=== PATIENT | male | born 1940 | race Caucasian/White ===

== ENCOUNTER 2017-12-06 08:39 | Emergency (ER) | payer MEDICARE, BC ==
[2017-12-06 08:54] VITALS: RESP 18
[2017-12-06] MEDS ORDERED: ACETAMINOPHEN TAB 325 MG TAB PO STA (09:19)
--- NOTE | 2017-12-06 09:22 | ED ---
Fever HPI - General Chief Complaint: Fever Stated Complaint: ABd Pain, Sweating Time Seen by Provider: 12/06/17 08:57 Source: patient Mode of arrival: ambulatory Limitations: no limitations - History of Present Illness Initial Comments: 76-year-old male patient presents to the emergency department today reporting night sweats for the last 3-4 days. Patient states that he has woken up drenched in sweat with damp clothing every morning for the last 3-4 days. Patient states that he did have his teeth removed with denture placement in September states that this has decreased his amount of food intake and this has made him weak and tired. Patient denies any sores in his mouth. He denies any cough , congestion, sore throat, abdominal pain, nausea, vomiting, hematuria or dysuria. States that the other day he did have some urinary urgency. Denies any rash. Denies any recent travel or sick contacts. Denies any history of issues with his blood sugar. Patient is up having any chest pain, shortness of breath, or dizziness. - Related Data Previous Rx's Medication Instructions Recorded Levofloxacin [Levaquin] 500 mg PO DAILY #10 tab 12/06/17 Allergies Allergy/AdvReac Type Severity Reaction Status Date / Time No Known Allergies Allergy Verified 12/06/17 08:54 Review of Systems ROS Statement: Those systems with pertinent positive or pertinent negative responses have been documented in the HPI. ROS Other: All systems not noted in ROS Statement are negative. Past Medical History Past Medical History: No Reported History History of Any Multi-Drug Resistant Organisms: None Reported Past Surgical History: Hernia Repair Additional Past Surgical History / Comment(s): finger operation Past Psychological History: No Psychological Hx Reported Smoking Status: Former smoker Past Alcohol Use History: None Reported Past Drug Use History: None Reported General Exam Limitations: no limitations General appearance: alert, in no apparent distress, other (This is a well- developed, well-nourished elderly male patient in no acute distress. Vital signs upon presentation are temperature 100.4F, pulse 97, respirations 18, blood pressure 142/87, pulse ox 94% on room air.) Eye exam: Present: normal appearance, PERRL, EOMI. Absent: scleral icterus, conjunctival injection, periorbital swelling ENT exam: Present: normal exam, normal oropharynx, mucous membranes moist Neck exam: Present: normal inspection. Absent: tenderness, meningismus, lymphadenopathy Respiratory exam: Present: normal lung sounds bilaterally. Absent: respiratory distress, wheezes, rales, rhonchi, stridor Cardiovascular Exam: Present: regular rate, normal rhythm, normal heart sounds. Absent: systolic murmur, diastolic murmur, rubs, gallop, clicks GI/Abdominal exam: Present: soft, normal bowel sounds. Absent: distended, tenderness, guarding, rebound, rigid Neurological exam: Present: alert, oriented X3, CN II-XII intact Psychiatric exam: Present: normal affect, normal mood Skin exam: Present: warm, dry, intact, normal color. Absent: rash Course Vital Signs 12/06/17 12/06/17 12/06/17 08:49 09:32 09:34 Temperature 100.4 F H 101.6 F H Pulse Rate 97 86 Respiratory 18 18 Rate Blood Pressure 142/87 141/71 O2 Sat by Pulse 94 L 92 L 96 Oximetry 12/06/17 12/06/17 10:34 11:36 Temperature 100.5 F H 98.3 F Pulse Rate 75 76 Respiratory 18 18 Rate Blood Pressure 128/65 140/78 O2 Sat by Pulse 96 96 Oximetry Medical Decision Making - Medical Decision Making 76-year-old male patient presents the emergency department today for complaints of night sweats. Physical examination was relatively unremarkable. Abdomen soft and nontender. Lungs are clear to auscultation with good air movement. Patient had no rash or swelling. Labs reviewed and showed an elevated white blood cell count at 15.5. Neutrophils are 13.1. Urinalysis did show 1+ protein , trace amount of blood, moderate leukocyte esterase, 15 white blood cells, rare oxalate crystals, rare bacteria, and many mucus. Chest x-ray showed platelike atelectasis in the left lower lobe. No evidence of acute pneumonia. I did discuss findings and results with the patient. Given his vitals and lab results we are concerned for sepsis and recommended admission to the hospital. Patient refuses admission stating that he was the only one able to care for his . He requests oral antibiotics and to be discharged. I did discuss risks of leaving including worsening of his infection, permanent disability, or . He verbalizes understanding of the risks and again would like to leave. I did recommend close follow-up outpatient, he is instructed to follow-up with urologist for further evaluation of the urinary tract as well as his primary care physician. Patient states he does not currently have a primary care doctor but will call his 's physician to see if he can get an appointment with him in the morning. Return parameters were discussed in detail and at great length. He verbalizes understanding. Patient did sign AMA form. - Lab Data Result diagrams: 12/06/17 09:12 12/06/17 09:12 Lab Results 12/06/17 12/06/17 12/06/17 Range/Units 09:12 09:12 09:12 WBC 15.5 H (3.8-10.6) k/uL RBC 5.12 (4.30-5.90) m/uL Hgb 15.1 (13.0-17.5) gm/dL Hct 43.6 (39.0-53.0) % MCV 85.0 (80.0-100.0) fL MCH 29.4 (25.0-35.0) pg MCHC 34.6 (31.0-37.0) g/dL RDW 13.0 (11.5-15.5) % Plt Count 186 (150-450) k/uL Neutrophils % 84 % Lymphocytes % 6 % Monocytes % 7 % Eosinophils % 0 % Basophils % 0 % Neutrophils # 13.1 H (1.3-7.7) k/uL Lymphocytes # 0.9 L (1.0-4.8) k/uL Monocytes # 1.1 H (0-1.0) k/uL Eosinophils # 0.0 (0-0.7) k/uL Basophils # 0.0 (0-0.2) k/uL PT (9.0-12.0) sec INR (<1.2) APTT (22.0-30.0) sec Sodium 139 (137-145) mmol/L Potassium 4.4 (3.5-5.1) mmol/L Chloride 104 (98-107) mmol/L Carbon Dioxide 22 (22-30) mmol/L Anion Gap 13 mmol/L BUN 15 (9-20) mg/dL Creatinine 1.00 (0.66-1.25) mg/dL Est GFR (CKD-EPI)AfAm 85 (>60 ml/min/1.73 sqM) Est GFR (CKD-EPI)NonAf 74 (>60 ml/min/1.73 sqM) Glucose 116 H (74-99) mg/dL Plasma Lactic Acid Brandon (0.7-2.0) mmol/L Calcium 9.6 (8.4-10.2) mg/dL Total Bilirubin 1.3 (0.2-1.3) mg/dL AST 32 (17-59) U/L ALT 41 (21-72) U/L Alkaline Phosphatase 74 (38-126) U/L Total Creatine Kinase 30 L (55-170) U/L CK-MB (CK-2) 0.7 (0.0-2.4) ng/mL CK-MB (CK-2) Rel Index 2.3 Troponin I <0.012 (0.000-0.034) ng/mL Total Protein 7.1 (6.3-8.2) g/dL Albumin 4.0 (3.5-5.0) g/dL Urine Color Urine Appearance (Clear) Urine pH (5.0-8.0) Ur Specific [place] (1.001-1.035) Urine Protein (Negative) Urine Glucose (UA) (Negative) Urine Ketones (Negative) Urine Blood (Negative) Urine Nitrite (Negative) Urine Bilirubin (Negative) Urine Urobilinogen (<2.0) mg/dL Ur Leukocyte Esterase (Negative) Urine RBC (0-5) /hpf Urine WBC (0-5) /hpf Ur Squamous Epith Cells (0-4) /hpf Calcium Oxalate Crystal (None) /hpf Urine Bacteria (None) /hpf Urine Mucus (None) /hpf 12/06/17 12/06/17 12/06/17 Range/Units 09:12 09:12 09:12 WBC (3.8-10.6) k/uL RBC (4.30-5.90) m/uL Hgb (13.0-17.5) gm/dL Hct (39.0-53.0) % MCV (80.0-100.0) fL MCH (25.0-35.0) pg MCHC (31.0-37.0) g/dL RDW (11.5-15.5) % Plt Count (150-450) k/uL Neutrophils % % Lymphocytes % % Monocytes % % Eosinophils % % Basophils % % Neutrophils # (1.3-7.7) k/uL Lymphocytes # (1.0-4.8) k/uL Monocytes # (0-1.0) k/uL Eosinophils # (0-0.7) k/uL Basophils # (0-0.2) k/uL PT 11.3 (9.0-12.0) sec INR 1.2 H (<1.2) APTT 24.3 (22.0-30.0) sec Sodium (137-145) mmol/L Potassium (3.5-5.1) mmol/L Chloride (98-107) mmol/L Carbon Dioxide (22-30) mmol/L Anion Gap mmol/L BUN (9-20) mg/dL Creatinine (0.66-1.25) mg/dL Est GFR (CKD-EPI)AfAm (>60 ml/min/1.73 sqM) Est GFR (CKD-EPI)NonAf (>60 ml/min/1.73 sqM) Glucose (74-99) mg/dL Plasma Lactic Acid Brandon 1.0 (0.7-2.0) mmol/L Calcium (8.4-10.2) mg/dL Total Bilirubin (0.2-1.3) mg/dL AST (17-59) U/L ALT (21-72) U/L Alkaline Phosphatase (38-126) U/L Total Creatine Kinase (55-170) U/L CK-MB (CK-2) (0.0-2.4) ng/mL CK-MB (CK-2) Rel Index Troponin I (0.000-0.034) ng/mL Total Protein (6.3-8.2) g/dL Albumin (3.5-5.0) g/dL Urine Color Dark Yellow Urine Appearance Clear (Clear) Urine pH 5.5 (5.0-8.0) Ur Specific [place] 1.024 (1.001-1.035) Urine Protein 1+ H (Negative) Urine Glucose (UA) Negative (Negative) Urine Ketones Negative (Negative) Urine Blood Trace H (Negative) Urine Nitrite Negative (Negative) Urine Bilirubin Negative (Negative) Urine Urobilinogen 4.0 (<2.0) mg/dL Ur Leukocyte Esterase Moderate H (Negative) Urine RBC 3 (0-5) /hpf Urine WBC 15 H (0-5) /hpf Ur Squamous Epith Cells <1 (0-4) /hpf Calcium Oxalate Crystal Rare H (None) /hpf Urine Bacteria Rare H (None) /hpf Urine Mucus Many H (None) /hpf - Radiology Data Radiology results: report reviewed, image reviewed Two-view x-ray of the chest is obtained. Report was reviewed in its entirety. Impression by Dr. Cervantes shows platelet atelectasis, left lung base. Hiatal hernia. Disposition Clinical Impression: Fever, Urinary tract infection Disposition: Left Against Medical Advice Condition: Serious Instructions: Urinary Tract Infection in Men (ED), Fever in Adults (ED) Additional Instructions: Complete antibiotic prescription in full. Follow-up with urologist as well as a primary care physician for recheck as soon as possible. Return here immediately for any new, worsening, or concerning symptoms. Prescriptions: Levofloxacin [Levaquin] 500 mg PO DAILY #10 tab Is patient prescribed a controlled substance at d/c from ED?: No Referrals: None,Stated [Primary Care Provider] - 1-2 days Time of Disposition: 11:27
[2017-12-06] MEDS: SODIUM CHLORIDE 0.9% 500 ML IV SCH (09:28)
[2017-12-06 09:31] LABS: Basophils % (A) 0 %; Eosinophils % (A) 0 %; HCT 43.6 % (39.0-53.0); HGB 15.1 gm/dL (13.0-17.5); Lymphocytes # (A) 0.9 k/uL (1.0-4.8); Lymphocytes % (A) 6 %; MCH 29.4 pg (25.0-35.0); MCHC 34.6 g/dL (31.0-37.0); Mean Platelet Volume 7.8; Monocytes # (A) 1.1 k/uL (0-1.0); Monocytes % (A) 7 %; Neutrophils # (A) 13.1 k/uL (1.3-7.7); Neutrophils % (A) 84 %; Platelet Count 186 k/uL (150-450); RBC 5.12 m/uL (4.30-5.90); WBC 15.5 k/uL (3.8-10.6)
[2017-12-06 09:39] LABS: INR 1.2 (<1.2); Partial Thromboplastin Time 24.3 sec (22.0-30.0); Prothrombin Time 11.3 sec (9.0-12.0)
[2017-12-06 09:40] LABS: Calcium 9.6 mg/dL (8.4-10.2); Potassium 4.4 mmol/L (3.5-5.1); Total Bilirubin 1.3 mg/dL (0.2-1.3); Total Protein 7.1 g/dL (6.3-8.2)
[2017-12-06 09:41] LABS: Appearance,Urine Clear (Clear); Bacteria,Urine Rare /hpf; Bilirubin,Urine Negative (Negative); Blood,Urine Trace (Negative); Calcium Oxalate Crystals,Urine Rare /hpf; Color,Urine Dark Yellow; Glucose,Urine (UA) Negative (Negative); Ketones,Urine Negative (Negative); Leukocyte Esterase,Urine Moderate (Negative); Mucus,Urine Many /hpf; Nitrite,Urine Negative (Negative); PH, Urine 5.5 (5.0-8.0); Protein,Urine 1+ (Negative); RBC,Urine 3 /hpf (0-5); Specific Gravity,Urine 1.024 (1.001-1.035); Squamous Epithelial Cell,Urine <1 /hpf (0-4); WBC,Urine 15 /hpf (0-5)
[2017-12-06 09:48] LABS: Creatine Kinase 30 U/L (55-170)
[2017-12-06 10:01] LABS: Creatine Kinase MB 0.7 ng/mL (0.0-2.4); Troponin I <0.012 ng/mL (0.000-0.034)
--- NOTE | 2017-12-06 10:09 | XR ---
EXAMINATION TYPE: XR chest 2V DATE OF EXAM: 12/06/2017 HISTORY: Fever. REFERENCE: NONE. FINDINGS: There is some platelike atelectasis at the left lung base. The lungs are otherwise clear. P leural space are clear. The heart is not enlarged. There is a moderate hiatal hernia present behind t he heart. IMPRESSION: 1. PLATELIKE ATELECTASIS, LEFT LUNG BASE. 2. HIATAL HERNIA.
[2017-12-06] MEDS ORDERED: LEVOFLOXACIN 750MG-D5W PMX 750 MG in DEXTROSE/WATER 1 150ML.BAG IVPB STA (11:17)
[2017-12-06] MEDS ORDERED: LEVOFLOXACIN 750 MG TAB PO STA (11:29)
[2017-12-06 11:37] VITALS: BP 140/78; PULSE 76; TEMP 98.3
== END 2017-12-06 11:46 | disposition left against medical advice (07) ==
LOC: EC 08:39
DX: N39.0 Urinary tract infection, site not specified (principal); J98.11 Atelectasis; K44.9 Diaphragmatic hernia without obstruction or gangrene; D72.829 Elevated white blood cell count, unspecified; R61 Generalized hyperhidrosis; Z87.891 Personal history of nicotine dependence; Z97.2 Presence of dental prosthetic device (complete) (partial)
CPT/HCPCS: 36415; 71046; 80053; 81001; 82550; 82553; 83605; 84484; 85025; 85610; 85730; 87040; 87077; 87086; 87186; 93005; 96360; 99284

== ENCOUNTER → 2021-11-25 | Outpatient (CLI) | payer MEDICARE ==
[2021-11-25 17:58] LABS: Basophils # (A) 0.03 X 10*3/uL (0.00-0.10); Basophils % (A) 0.3 %; Eosinophils # (A) 0.29 X 10*3/uL (0.04-0.35); HCT 40.9 % (39.6-50.0); Immature Grans, Automated 0.6 %; Lymphocytes # (A) 2.22 X 10*3/uL (0.90-5.00); Lymphocytes % (A) 23.3 %; MCH 30.4 pg (27.0-32.0); MCHC 34.2 g/dL (32.0-37.0); MCV 88.9 fL (80.0-97.0); Mean Platelet Volume 10.8 fL (9.5-12.2); Monocytes # (A) 0.82 X 10*3/uL (0.20-1.00); Monocytes % (A) 8.6 %; NRBC Per 100 WBC 0 /100 WBCS (0.0-0.0); Neutrophils # (A) 6.11 X 10*3/uL (1.80-7.70); Neutrophils % (A) 64.2 %; Platelet Count 263 X 10*3/uL (140-440); WBC 9.53 X 10*3/uL (4.50-10.00)
[2021-11-25 18:02] LABS: African American GFR (CKD) 74.1 (60.0-200.0); BUN/Creat Ratio 12.82 Ratio (12.00-20.00); Blood Urea Nitrogen 14.1 mg/dL (9.0-27.0); Calcium 9.1 mg/dL (8.7-10.3); Potassium 3.9 mmol/L (3.5-5.5)
[2021-11-25 22:36] LABS: Appearance,Urine Clear (Clear); Bilirubin,Urine Negative (Negative); Blood,Urine Trace (Negative); Color,Urine Yellow (Yellow); Ketones,Urine Trace mg/dL (Negative); Nitrite,Urine Negative (Negative); PH, Urine 5.5 (5.0-8.0); Specific Gravity,Urine 1.022 (1.001-1.030)
[2021-11-25 22:54] LABS: Bacteria,Urine None Seen /HPF (None Seen); Calcium Oxalate Crystals,Urine Present /LPF (None Seen)
== END | disposition home or self-care (01) ==
LOC: LABPAT 13:36
PROVIDERS: ATTEND Urology
DX: Z01.812 Encounter for preprocedural laboratory examination (principal); N20.0 Calculus of kidney
CPT/HCPCS: 80048; 81001; 85025; 87086

== ENCOUNTER 2021-12-02 07:44 | Day surgery (SDC) | payer BC, MEDICARE ==
[2021-11-28 09:26] VITALS: BMI 26.8
--- NOTE | 2021-11-28 11:56 | P.HPIHPCON ---
History of Present Illness H&P Date: 11/28/21 this is a 80-year-old male with history of a horseshoe kidney. Underwent a CT which showed evidence of a 1 cm right-sided renal pelvis stone within the right- sided kidney. He is mildly symptomatic from his stone and there is mild dilation of the collecting system on that side. Discussed with him the option of ureteroscopy with holmium laser, discussed with him an ESWL would have low success given the stone to skin distance. Discussed with him with ureteroscopy and holmium laser the risk of bleeding, infection, injury to the ureter. Discussed also given his anatomy of a horseshoe kidney there is a potential it may be difficult to access the collecting system in order to perform ureterosc opy with holmium laser. At that time the next step would be to proceed with a PCNL to address his stone. He understood all the risk and agreed to proceed Consent for Procedure: I have explained the operation/procedure to the patient, including the risks, benefits, side effects, alternative therapies (including not receiving the proposed treatment or service), the likelihood of the patient achieving his/her goals, and potential recuperation problems for the procedure/sedation/analgesia, as well as any blood products, if indicated. I also explained to the patient the risks, benefits and side effects of the alternatives, as well as the risks related to not receiving the proposed procedure, care, treatment, or services. Past Medical History Past Medical History: Hypertension, Osteoarthritis (OA) Additional Past Medical History / Comment(s): ABDOMINAL PAIN, KIDNEY STONE, History of Any Multi-Drug Resistant Organisms: None Reported Past Surgical History: Hernia Repair Additional Past Surgical History / Comment(s): left little finger surgery, Past Anesthesia/Blood Transfusion Reactions: No Reported Reaction Smoking Status: Former smoker - Past Family History Mother Family Medical History: No Reported History Brother(s) Family Medical History: Cancer Medications and Allergies Home Medications Medication Instructions Recorded Confirmed Type Aspirin EC [Ecotrin Low Dose] 81 mg PO DAILY 11/28/21 11/28/21 History Dicyclomine HCl 10 mg PO TID 11/28/21 11/28/21 History Docusate [Colace] 100 mg PO DAILY PRN 11/28/21 11/28/21 History Lactulose 10 gm PO BID 11/28/21 11/28/21 History Multivitamins, Thera [Multivitamin 1 tab PO DAILY 11/28/21 11/28/21 History (formulary)] Simethicone [Gas-X] 125 mg PO DAILY PRN 11/28/21 11/28/21 History amLODIPine [Norvasc] 2.5 mg PO HS 11/28/21 11/28/21 History lisinopriL [Zestril] 10 mg PO HS 11/28/21 11/28/21 History Allergies Allergy/AdvReac Type Severity Reaction Status Date / Time No Known Allergies Allergy Verified 11/28/21 08:15 Surgical - Exam - General no distress, no pain - Eyes normal ocular movement, no pale - ENT normal nares, normal mucosa - Respiratory normal expansion, normal respiratory effort - Abdomen Abdomen: soft, non tender - Psychiatric oriented to time, oriented to person, oriented to place Assessment and Plan Assessment: OR for right-sided ureteroscopy, holmium laser lithotripsy, stone basketing and stent insertion
--- NOTE | 2021-12-02 08:01 | XR ---
EXAMINATION TYPE: XR KUB DATE OF EXAM: 12/02/2021 Comparison: None Clinical History: 80-year-old male Right Renal Stone N20.0 Findings: There is a 2.3 x 0.8 cm smooth oval calcification projecting at the right paramedian mid abdomen. Sma ll pelvic phlebolith. Nonobstructive bowel gas pattern. [id number] stool were noted. Endplate s pondylosis throughout the lumbar spine and thoracolumbar junction. Impression: An oval 2.3 x 0.8 cm calculus right mid abdomen.
[2021-12-02] MEDS ORDERED: LACTATED RINGERS 1,000 ML IV SCH (08:02)
[2021-12-02] MEDS ORDERED: MIDAZOLAM 2 MG/2 ML VIAL IV PRN (08:02)
[2021-12-02] MEDS ORDERED: HYDROmorphone 0.5 MG/0.5 ML SYRINGE IVP PRN (08:02)
[2021-12-02] MEDS ORDERED: DEXAMETHASONE SOD PHOSPHATE 4 MG/ML 1 ML VIAL IV ONE (08:02)
[2021-12-02] MEDS ORDERED: ONDANSETRON 4 MG/2 ML VIAL IVP ONE (08:02)
[2021-12-02] MEDS ORDERED: fentaNYL (PF) 50 MCG/ML 2 ML AMP ONE (08:54)
[2021-12-02] MEDS ORDERED: ePHEDrine 50 MG/ML 1 ML VIAL ONE (08:54)
[2021-12-02] MEDS ORDERED: LIDOCAINE 2% INJ 20 MG/ML (2 ML VIAL) ONE (08:54)
[2021-12-02] MEDS ORDERED: PROPOFOL 10 MG/ML 20 ML VIAL IV ONE (08:54)
[2021-12-02] MEDS ORDERED: IOPAMIDOL-370 50ML BTL MISCELLANE ONE (09:29)
[2021-12-02 09:53] VITALS: RESP 16; TEMP 97.3
--- NOTE | 2021-12-02 09:56 | P.OP ---
Date of Procedure: 12/02/21 Preoperative Diagnosis: Right-sided renal stone Postoperative Diagnosis: Same Procedure(s) Performed: Cystoscopy, right retrograde pyelogram Implants: None Anesthesia: PATRICIAA Surgeon: Ayush Almeida Estimated Blood Loss (ml): 5 Pathology: none sent Condition: stable Disposition: PACU Indications for Procedure: this is a 80-year-old male with history of a horseshoe kidney. Underwent a CT which showed evidence of a 1 cm right-sided renal pelvis stone within the right- sided kidney. He is mildly symptomatic from his stone and there is mild dilation of the collecting system on that side. Discussed with him the option of ureteroscopy with holmium laser, discussed with him an ESWL would have low success given the stone to skin distance. Discussed with him with ureteroscopy and holmium laser the risk of bleeding, infection, injury to the ureter. Di scussed also given his anatomy of a horseshoe kidney there is a potential it may be difficult to access the collecting system in order to perform ureteroscopy with holmium laser. At that time the next step would be to proceed with a PCNL to address his stone. He understood all the risk and agreed to proceed Operative Findings: Complete looping of the distal ureter, unable to straighten the ureter using the wire. Description of Procedure: Patient brought to the operating room, general anesthesia was induced. He was prepped and draped in sterile fashion and placed in dorsal lithotomy position. Cystoscopy fitted with 21-Divehi sheath was inserted per urethra, cystoscopy was performed which showed no abnormality within the bladder. Of note patient had an enlarged prostate and enlarged median lobe. Attention was then carried to the right ureteral orifice which was intubated with a sensor wire. Upon passing the sensor wire there appeared to be the distal ureter was completely looped. At this time a open-ended catheter was advanced over the wire and the wire was removed with the catheter in place. Next retrograde Polygram was performed which showed complete looping of the distal ureter, and there was additionally a narrowed proximal ureter. There was no filling defect along the course of the ureter. At this time I attempted to advance the wire through the catheter I was able to advance the wire into the proximal, but there was some difficulty navigating the wire past the narrowed portion of the proximal ureter. I att empted to straighten out the ureter using the wire but I was unsuccessful. Given the complete looping of the ureter the ureteroscopic would not be able to pass given the degree of the looping. At this time decision was made to abort the ureteroscopy. The bladder was emptied at the end of the case. Patient tolerated the procedure well taken to recovery in stable condition. Images of the retrograde were saved in the patient EMR
--- NOTE | 2021-12-02 10:38 | FL ---
Intraoperative/procedural fluoroscopic services were provided. Total fluoroscopy time is 22 seconds w ith a total of 2 submitted images to PACS. Please see the operative note for further details.
[2021-12-02 11:17] VITALS: BP 163/77; PULSE 66
== END 2021-12-02 11:29 | disposition home or self-care (01) ==
LOC: OR 07:44
PROVIDERS: ATTEND Urology
DX: N20.0 Calculus of kidney (principal); Q63.1 Lobulated, fused and horseshoe kidney; I10 Essential (primary) hypertension; M19.90 Unspecified osteoarthritis, unspecified site; Z87.891 Personal history of nicotine dependence; Z79.82 Long term (current) use of aspirin; Z79.899 Other long term (current) drug therapy; Z80.9 Family history of malignant neoplasm, unspecified; K21.9 Gastro-esophageal reflux disease without esophagitis
CPT/HCPCS: 74420; 74018; 52005; C1894; C1758; C1769 ×3; J1100; J0690; J2405; J3010; J2704; Q9967; J2001

== ENCOUNTER 2023-09-08 08:35 | Emergency (ER) | payer MEDICARE ==
[2023-09-08 08:48] VITALS: RESP 18; TEMP 98
--- NOTE | 2023-09-08 09:27 | ED ---
Abdominal Pain HPI - General Chief Complaint: Abdominal Pain Stated Complaint: rt abd pain Time Seen by Provider: 09/08/23 08:47 Source: patient, RN notes reviewed Mode of arrival: ambulatory Limitations: no limitations - History of Present Illness Initial Comments: This is an 82-year-old male who presents to the emergency department for abdominal pain. Reports problems with right lower quadrant abdominal pain that have been intermittent over the last year. States that he has constipation as well. He has been taking stool softeners and his most recent bowel movement was yesterday. He is concerned that he is not passing as much gas as he usually would. Also reports a history of right-sided kidney stones. He had blood work done a week ago and was told that he may have a kidney infection and is waiting for a referral to [facility] regarding the kidney stones, but does not know the details of this. MD Complaint: abdominal pain - Related Data Home Medications Medication Instructions Recorded Confirmed Aspirin EC [Ecotrin Low Dose] 81 mg PO DAILY 11/28/21 09/08/23 amLODIPine [Norvasc] 2.5 mg PO DAILY@1500 11/28/21 09/08/23 lisinopriL [Zestril] 10 mg PO DAILY@1500 11/28/21 09/08/23 Balance And Nature Vitamins 3 tab PO DAILY 09/08/23 09/08/23 Docusate [Colace] 100 mg PO DAILY 09/08/23 09/08/23 Glucosamine/Chondr Bui A Sod [Osteo 2 tab PO DAILY 09/08/23 09/08/23 Bi-Flex Caplet] amLODIPine [Norvasc] 5 mg PO DAILY@1500 09/08/23 09/08/23 bisacodyL [Dulcolax] 5 mg PO DAILY 09/08/23 09/08/23 Previous Rx's Medication Instructions Recorded HYDROcodone/APAP 5-325MG [Rociada 1 tab PO Q6HR PRN 3 Days #12 tab 09/08/23 5-325] Ketorolac [Toradol] 10 mg PO Q6HR PRN #15 tab 09/08/23 cefUROXime axetiL [Ceftin] 500 mg PO BID 7 Days #14 tab 09/08/23 Allergies Allergy/AdvReac Type Severity Reaction Status Date / Time No Known Allergies Allergy Verified 09/08/23 12:14 Review of Systems ROS Statement: Those systems with pertinent positive or pertinent negative responses have been documented in the HPI. ROS Other: All systems not noted in ROS Statement are negative. Past Medical History Past Medical History: Hypertension, Osteoarthritis (OA) Additional Past Medical History / Comment(s): ABDOMINAL PAIN, KIDNEY STONE, History of Any Multi-Drug Resistant Organisms: None Reported Past Surgical History: Hernia Repair Additional Past Surgical History / Comment(s): left little finger surgery, Past Anesthesia/Blood Transfusion Reactions: No Reported Reaction Past Psychological History: No Psychological Hx Reported Smoking Status: Former smoker Past Alcohol Use History: None Reported Past Drug Use History: None Reported - Past Family History Mother Family Medical History: No Reported History Brother(s) Family Medical History: Cancer General Exam Limitations: no limitations General appearance: alert, in no apparent distress Head exam: Present: atraumatic, normocephalic, normal inspection Respiratory exam: Present: normal lung sounds bilaterally. Absent: respiratory distress, wheezes, rales, rhonchi, stridor Cardiovascular Exam: Present: regular rate, normal rhythm, normal heart sounds. Absent: systolic murmur, diastolic murmur, rubs, gallop, clicks GI/Abdominal exam: Present: soft, tenderness (RLQ), normal bowel sounds. Absent: distended Back exam: Present: CVA tenderness (R) Neurological exam: Present: alert, oriented X3, CN II-XII intact Psychiatric exam: Present: normal affect, normal mood Skin exam: Present: warm, dry, intact, normal color. Absent: rash Course Vital Signs 09/08/23 09/08/23 09/08/23 08:37 10:49 12:54 Temperature 98 F Pulse Rate 92 66 79 Respiratory 18 18 18 Rate Blood Pressure 152/75 143/75 143/102 O2 Sat by Pulse 98 96 95 Oximetry Medical Decision Making - Medical Decision Making This is an 82-year-old male who presents to the emergency department for abdominal pain. Was pt. sent in by a medical professional or institution? @ -No Did you speak to anyone other than the patient for history? @ -No Did you review nursing and triage notes? @ -Yes, and I agree, it is accurate with regards to the patient's symptoms. Were old charts reviewed? @ -No Differential Diagnosis? @ -Differential Abdominal Pain Men: Appendicitis, cholecystitis, diverticulosis, ischemic bowel, pancreatitis, h epatitis, UTI, gastroenteritis, AAA, incarcerated hernia, bowel obstruction, constipation, inflammatory bowel, hepatitis, peptic ulcer disease, splenic infarction, perforated viscus, testicular torsion, this is not meant to be an all-inclusive list EKG interpreted by me (3pts min.)? @ -Not obtained X-rays interpreted by me (1pt min.)? @ -Not obtained CT interpreted by me (1pt min.)? @ -CT scan of the abdomen pelvis obtained. My interpretation identifies a calculus in the right renal pelvis. U/S interpreted by me (1pt. min.)? @ -Not obtained What testing was considered but not performed? (CT, X-rays, U/S, labs)? Why? @ -None What meds were considered but not given? Why? @ -None Did you discuss the management of the patient with other professionals? @ -No Did you reconcile home meds? @ -No Was smoking cessation discussed for >3mins.? @ -No Was critical care preformed (if so, how long)? @ -No Were there social determinants of health that impacted care today? How? (Homelessness, low income, unemployed, alcoholism, drug addiction, transportation, low edu. Level, literacy, decrease access to med. care, longterm, rehab)? @ -No Was there de-escalation of care discussed even if they declined? (Discuss DNR or withdrawal of care, Hospice)? @ -No What co-morbidities impacted this encounter? (DM, HTN, Smoking, COPD, CAD, Cancer, CVA, Hep., AIDS, mental health diagnosis, sleep apnea, morbid obesity)? @ -Kidney stones Was patient admitted / discharged? @ -Discharged. Lab work unremarkable. Urinalysis demonstrates blood and estefany vated white blood cells. 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 He has a 21 mm calculus in the right ureteropelvic junction as well as a calculus in the left renal pelvis measuring up to 13 mm. He has mild right hydronephrosis from the calculus in the right renal pelvis suggesting position changes near the pelvis. He also has a right fat-containing inguinal hernia. Findings reviewed with the patient. Case management called the urology office, who will review his information and contact the patient regarding an appointment. She also called the patient's primary care provider who advised that they sent the referral to [facility] on 09/01 and gave us the information for the patient to follow-up on this himself. Patient declined the need for any pain medication in the emergency department and was comfortable with discharge home. Advised he reach out to [facility] regarding the referral to see if they can get him in faster. He was started on antibiotics, cefuroxime, due to the elevated white blood cells in his urine and a prescription for Toradol and Rociada was provided as well for pain management. Undiagnosed new problem with uncertain prognosis? @ -None Drug Therapy requiring intensive monitoring for toxicity (Heparin, Nitro, Insulin, Cardizem)? @ -None Were any procedures done? @ -None Diagnosis/symptom? @ -Renal pelvis calculi Acute, or Chronic, or Acute on Chronic? @ -Chronic Uncomplicated (without systemic symptoms) or Complicated (systemic symptoms)? @ -Uncomplicated Side effects of treatment? @ -None Exacerbation, Progression, or Severe Exacerbation] @ -Exacerbation/progression Poses a threat to life or bodily function? @ -No Return precautions reviewed in depth, the patient is instructed to return to the emergency department with any new, worsening, or concerning symptoms. Patient verbalized understanding. This case was discussed in detail with the attending ED physician, Dr. Salazar. Presentation, findings, and treatment plan discussed in detail as well. - Lab Data Result diagrams: 09/08/23 09:09/08/23 09:29 Lab Results 09/08/23 09/08/23 09/08/23 Range/Units 09: 09: 09:29 WBC 8.9 (3.8-10.6) k/uL RBC 5.09 (4.30-5.90) m/uL Hgb 15.3 (13.0-17.5) gm/dL Hct 45.8 (39.0-53.0) % MCV 89.9 (80.0-100.0) fL MCH 30.1 (25.0-35.0) pg MCHC 33.5 (31.0-37.0) g/dL RDW 13.0 (11.5-15.5) % Plt Count 213 (150-450) k/uL MPV 8.0 Neutrophils % 66 % Lymphocytes % 24 % Monocytes % 6 % Eosinophils % 3 % Basophils % 1 % Neutrophils # 5.9 (1.3-7.7) k/uL Lymphocytes # 2.1 (1.0-4.8) k/uL Monocytes # 0.5 (0-1.0) k/uL Eosinophils # 0.2 (0-0.7) k/uL Basophils # 0.1 (0-0.2) k/uL Sodium 140 (137-145) mmol/L Potassium 4.1 (3.5-5.1) mmol/L Chloride 108 H (98-107) mmol/L Carbon Dioxide 26 (22-30) mmol/L Anion Gap 6 mmol/L BUN 16 (9-20) mg/dL Creatinine 1.08 (0.66-1.25) mg/dL Est GFR (CKD-EPI)AfAm 75 (>60 ml/min/1.73 sqM) Est GFR (CKD-EPI)NonAf 64 (>60 ml/min/1.73 sqM) Glucose 111 H (74-99) mg/dL Plasma Lactic Acid Brandon 1.3 (0.7-2.0) mmol/L Calcium 8.9 (8.4-10.2) mg/dL Magnesium 2.1 (1.6-2.3) mg/dL Total Bilirubin 0.9 (0.2-1.3) mg/dL AST 25 (17-59) U/L ALT 21 (4-49) U/L Alkaline Phosphatase 75 (38-126) U/L Total Protein 6.5 (6.3-8.2) g/dL Albumin 4.0 (3.5-5.0) g/dL Amylase 52 (30-110) U/L Lipase 58 (23-300) U/L Urine Color Urine Appearance (Clear) Urine pH (5.0-8.0) Ur Specific [place] (1.001-1.035) Urine Protein (Negative) Urine Glucose (UA) (Negative) Urine Ketones (Negative) Urine Blood (Negative) Urine Nitrite (Negative) Urine Bilirubin (Negative) Urine Urobilinogen (<2.0) mg/dL Ur Leukocyte Esterase (Negative) Urine RBC (0-5) /hpf Urine WBC (0-5) /hpf Calcium Oxalate Crystal (None) /hpf Urine Bacteria (None) /hpf Urine Mucus (None) /hpf 09/08/23 Range/Units 10:36 WBC (3.8-10.6) k/uL RBC (4.30-5.90) m/uL Hgb (13.0-17.5) gm/dL Hct (39.0-53.0) % MCV (80.0-100.0) fL MCH (25.0-35.0) pg MCHC (31.0-37.0) g/dL RDW (11.5-15.5) % Plt Count (150-450) k/uL MPV Neutrophils % % Lymphocytes % % Monocytes % % Eosinophils % % Basophils % % Neutrophils # (1.3-7.7) k/uL Lymphocytes # (1.0-4.8) k/uL Monocytes # (0-1.0) k/uL Eosinophils # (0-0.7) k/uL Basophils # (0-0.2) k/uL Sodium (137-145) mmol/L Potassium (3.5-5.1) mmol/L Chloride (98-107) mmol/L Carbon Dioxide (22-30) mmol/L Anion Gap mmol/L BUN (9-20) mg/dL Creatinine (0.66-1.25) mg/dL Est GFR (CKD-EPI)AfAm (>60 ml/min/1.73 sqM) Est GFR (CKD-EPI)NonAf (>60 ml/min/1.73 sqM) Glucose (74-99) mg/dL Plasma Lactic Acid Brandon (0.7-2.0) mmol/L Calcium (8.4-10.2) mg/dL Magnesium (1.6-2.3) mg/dL Total Bilirubin (0.2-1.3) mg/dL AST (17-59) U/L ALT (4-49) U/L Alkaline Phosphatase (38-126) U/L Total Protein (6.3-8.2) g/dL Albumin (3.5-5.0) g/dL Amylase (30-110) U/L Lipase (23-300) U/L Urine Color Yellow Urine Appearance Cloudy (Clear) Urine pH 6.0 (5.0-8.0) Ur Specific [place] 1.023 (1.001-1.035) Urine Protein 2+ H (Negative) Urine Glucose (UA) Negative (Negative) Urine Ketones Negative (Negative) Urine Blood Moderate H (Negative) Urine Nitrite Negative (Negative) Urine Bilirubin Negative (Negative) Urine Urobilinogen <2.0 (<2.0) mg/dL Ur Leukocyte Esterase Moderate H (Negative) Urine RBC >182 H (0-5) /hpf Urine WBC 26 H (0-5) /hpf Calcium Oxalate Crystal Occasional H (None) /hpf Urine Bacteria Rare H (None) /hpf Urine Mucus Few H (None) /hpf - Radiology Data Radiology results: report reviewed, image reviewed Disposition Clinical Impression: Stone in renal pelvis, UTI (urinary tract infection) Disposition: HOME SELF-CARE Instructions (If sedation given, give patient instructions): Urinary Tract Infection in Men (ED), Renal Colic (ED) Additional Instructions: Return to the emergency department with any new, worsening, or concerning symptoms. Take the antibiotic as prescribed for 7 days. Take the Toradol with Tylenol as needed for pain relief. If you choose to take the Toradol, do not take any other anti-inflammatories such as ibuprofen, take one or the other. Take the Rociada up to every 6 hours as needed for pain relief. Take this sparingly and be aware that it may make you drowsy. Dr. Almedia's urology office will contact you after reviewing your information. Your information was faxed to [facility] about a week ago. Please contact them as listed below regarding the status of your referral. Dr. Cleve Hedrick [phone] Prescriptions: cefUROXime axetiL [Ceftin] 500 mg PO BID 7 Days #14 tab HYDROcodone/APAP 5-325MG [Rociada 5-325] 1 tab PO Q6HR PRN 3 Days #12 tab PRN Reason: Pain Ketorolac [Toradol] 10 mg PO Q6HR PRN #15 tab PRN Reason: Pain Is patient prescribed a controlled substance at d/c from ED?: Yes When asked, does pt state using other controlled substances?: No If prescribed controlled substance>3 days was MAPS reviewed?: Prescribed <3 Days Referrals: Eddie Bernal MD [Primary Care Provider] - 1-2 days Ayush Almeida MD [STAFF PHYSICIAN] - As Soon As Possible (Office has information, physician will review and they will contact you regarding an appointment. If you do not hear from them by September 09 please contact office. ) Time of Disposition: 12:16
[2023-09-08 09:34] LABS: Basophils # (A) 0.1 k/uL (0-0.2); Basophils % (A) 1 %; Eosinophils # (A) 0.2 k/uL (0-0.7); Eosinophils % (A) 3 %; HCT 45.8 % (39.0-53.0); HGB 15.3 gm/dL (13.0-17.5); Lymphocytes # (A) 2.1 k/uL (1.0-4.8); Lymphocytes % (A) 24 %; MCH 30.1 pg (25.0-35.0); MCHC 33.5 g/dL (31.0-37.0); MCV 89.9 fL (80.0-100.0); Monocytes # (A) 0.5 k/uL (0-1.0); Monocytes % (A) 6 %; Neutrophils # (A) 5.9 k/uL (1.3-7.7); Neutrophils % (A) 66 %; Platelet Count 213 k/uL (150-450); RBC 5.09 m/uL (4.30-5.90); WBC 8.9 k/uL (3.8-10.6)
[2023-09-08 10:04] LABS: ALT 21 U/L (4-49); AST 25 U/L (17-59); African American GFR (CKD) 75 (>60 ml/min/1.73 sqM); Alkaline Phosphatase 75 U/L (38-126); Amylase 52 U/L (30-110); Anion Gap 6 mmol/L; Blood Urea Nitrogen 16 mg/dL (9-20); Calcium 8.9 mg/dL (8.4-10.2); Carbon Dioxide 26 mmol/L (22-30); Chloride 108 mmol/L (98-107); Glucose 111 mg/dL (74-99); Lipase 58 U/L (23-300); Magnesium 2.1 mg/dL (1.6-2.3); Non-African American GFR(CKD) 64 (>60 ml/min/1.73 sqM); Potassium 4.1 mmol/L (3.5-5.1); Sodium 140 mmol/L (137-145); Total Bilirubin 0.9 mg/dL (0.2-1.3); Total Protein 6.5 g/dL (6.3-8.2)
[2023-09-08 10:52] LABS: Appearance,Urine Cloudy (Clear); Bacteria,Urine Rare /hpf; Bilirubin,Urine Negative (Negative); Blood,Urine Moderate (Negative); Calcium Oxalate Crystals,Urine Occasional /hpf; Color,Urine Yellow; Glucose,Urine (UA) Negative (Negative); Ketones,Urine Negative (Negative); Leukocyte Esterase,Urine Moderate (Negative); Mucus,Urine Few /hpf; Nitrite,Urine Negative (Negative); Protein,Urine 2+ (Negative); RBC,Urine >182 /hpf (0-5); Specific Gravity,Urine 1.023 (1.001-1.035); Urobilinogen,Urine <2.0 mg/dL (<2.0); WBC,Urine 26 /hpf (0-5)
--- NOTE | 2023-09-08 11:02 | CT ---
EXAMINATION TYPE: CT abdomen pelvis w con CT DLP: 969.5 mGycm, Automated exposure control for dose reduction was used. DATE OF EXAM: 09/08/2023 10:34 AM COMPARISON: None CLINICAL INDICATION:Male, 82 years old with history of RLQ abdominal pain; RLQ pain TECHNIQUE: Axial CT abdomen pelvis w con;Sagittal and coronal reformats were created on a separate w orkstation. Contrast used:100 mL of Isovue 300 with IV Contrast, (none if empty) Oral contrast used: without Oral Contrast (none if empty) FINDINGS: LOWER CHEST: Unremarkable ABDOMEN LIVER: Unremarkable GALLBLADDER AND BILE DUCTS: Unremarkable. PANCREAS: Unremarkable. SPLEEN: Unremarkable. ADRENAL GLANDS: Unremarkable. KIDNEYS AND URETERS: Right renal pelvis 21 mm calculus in the ureteropelvic junction. There is crosse d fused ectopia of the kidney with additional calculus in the left kidney which is positioned midline , at the pelvis measuring up to 13 mm. There is mild right hydronephrosis from the calculus in the re nal pelvis with suggestion changes near the pelvis. PELVIS BLADDER: Unremarkable REPRODUCTIVE: Prostate is enlarged in size measuring 5.5 cm in transverse dimension. ABDOMEN & PELVIS STOMACH AND BOWEL: No evidence of bowel obstruction. Scattered colonic diverticula. There is a large hiatal hernia with majority of the stomach in the thorax. The appendix is normal. PERITONEUM/RETROPERITONEUM: No evidence of pneumoperitoneum or free fluid. VASCULATURE: No evidence of aortic aneurysm. MUSCULOSKELETAL: No acute osseous abnormalities LYMPH NODES: No gross evidence for lymphadenopathy. SOFT TISSUE/ABDOMINAL WALL: Fat-containing inguinal hernias. IMPRESSION: 1. 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 Renal pelves calculi are seen in the bilateral. There is mild right hydronephrosis. 2. Prostatomegaly, correlate serum PSA. 3. Right fat-containing inguinal hernia. 4. Large hiatal hernia with the majority stomach and the thorax.
[2023-09-08 13:30] VITALS: BP 143/102; PULSE 79
== END 2023-09-08 12:55 | disposition home or self-care (01) ==
LOC: EC 08:35
DX: K40.90 Unilateral inguinal hernia, without obstruction or gangrene, not specified as recurrent (principal); K44.9 Diaphragmatic hernia without obstruction or gangrene; N39.0 Urinary tract infection, site not specified
CPT/HCPCS: 36415; 80053; 82150; 83605; 83690; 83735; 85025; 81001; 87086; 74177; 99284; Q9967

== ENCOUNTER 2024-01-12 10:58 | Emergency (ER) | payer MEDICARE ==
--- NOTE | 2024-01-12 11:46 | ED ---
General Adult HPI - General Chief complaint: Abdominal Pain Stated complaint: Abdominal Pain Time Seen by Provider: 01/12/24 11:12 Source: patient, RN notes reviewed Mode of arrival: ambulatory Limitations: no limitations - History of Present Illness Initial comments: This is an 83-year-old male presents emergency room chief complaint of left hip and pelvic pain that has been present for the past 2 weeks. Patient states that the pain is intermittent and is occasionally exacerbated with range of motion. He denies previous surgeries of the left hip. He denies abdominal pain, nausea, vomiting, fevers, chills, urinary symptoms. Patient also states that he has a "bump "to the left lumbar region of his back and is concerned this may be causing the hip pain. - Related Data Home Medications Medication Instructions Recorded Confirmed Aspirin EC [Ecotrin Low Dose] 81 mg PO DAILY 11/28/21 09/08/23 amLODIPine [Norvasc] 2.5 mg PO DAILY@1500 11/28/21 09/08/23 lisinopriL [Zestril] 10 mg PO DAILY@1500 11/28/21 09/08/23 Balance And Nature Vitamins 3 tab PO DAILY 09/08/23 09/08/23 Docusate [Colace] 100 mg PO DAILY 09/08/23 09/08/23 Glucosamine/Chondr Bui A Sod [Osteo 2 tab PO DAILY 09/08/23 09/08/23 Bi-Flex Caplet] amLODIPine [Norvasc] 5 mg PO DAILY@1500 09/08/23 09/08/23 bisacodyL [Dulcolax] 5 mg PO DAILY 09/08/23 09/08/23 Previous Rx's Medication Instructions Recorded HYDROcodone/APAP 5-325MG [[facility] 1 tab PO Q6HR PRN 3 Days #12 tab 09/08/23 5-325] Ketorolac [Toradol] 10 mg PO Q6HR PRN #15 tab 09/08/23 cefUROXime axetiL [Ceftin] 500 mg PO BID 7 Days #14 tab 09/08/23 Ketorolac [Toradol] 10 mg PO Q8HR #15 tab 01/12/24 Allergies Allergy/AdvReac Type Severity Reaction Status Date / Time No Known Allergies Allergy Verified 01/12/24 11:01 Review of Systems ROS Statement: Those systems with pertinent positive or pertinent negative responses have been documented in the HPI. ROS Other: All systems not noted in ROS Statement are negative. Past Medical History Past Medical History: Hypertension, Osteoarthritis (OA) Additional Past Medical History / Comment(s): ABDOMINAL PAIN, KIDNEY STONE, History of Any Multi-Drug Resistant Organisms: None Reported Past Surgical History: Hernia Repair Additional Past Surgical History / Comment(s): left little finger surgery, Past Anesthesia/Blood Transfusion Reactions: No Reported Reaction Past Psychological History: No Psychological Hx Reported Smoking Status: Former smoker Past Alcohol Use History: None Reported Past Drug Use History: None Reported - Past Family History Mother Family Medical History: No Reported History Brother(s) Family Medical History: Cancer General Exam - General Exam Comments Initial Comments: Visual Physical Exam Vital signs reviewed General: Well-appearing, nontoxic, no acute distress. Head: Normocephalic, atraumatic Eyes: PERRLA, EOMI ENT: Airway patent Chest: Nonlabored breathing Skin: No visual rash, normal skin tone Neuro: Alert and oriented 3 Musculoskeletal: No gross abnormalities Limitations: no limitations General appearance: alert, in no apparent distress ENT exam: Present: normal exam, mucous membranes moist Neck exam: Present: normal inspection. Absent: tenderness, meningismus, lymphadenopathy Respiratory exam: Present: normal lung sounds bilaterally. Absent: respiratory distress, wheezes, rales, rhonchi, stridor Cardiovascular Exam: Present: regular rate, normal rhythm, normal heart sounds. Absent: systolic murmur, diastolic murmur, rubs, gallop, clicks GI/Abdominal exam: Present: soft, normal bowel sounds. Absent: distended, tenderness, guarding, rebound, rigid Extremities exam: Present: normal inspection, full ROM, normal capillary refill. Absent: tenderness, pedal edema, joint swelling, calf tenderness Back exam: Present: normal inspection, other (left lumbar lipoma, soft and mobile with no overlying erythema or active skin involvement, measuring aprox. 4 cm by 3 cm) Neurological exam: Present: alert, oriented X3, CN II-XII intact Skin exam: Present: warm, dry, intact, normal color. Absent: rash Course Vital Signs 01/12/24 01/12/24 01/12/24 10:59 13:07 13:25 Temperature 97.5 F L 98 F 97.9 F Pulse Rate 90 81 78 Respiratory 20 18 18 Rate Blood Pressure 147/75 150/81 139/71 O2 Sat by Pulse 98 98 98 Oximetry Medical Decision Making - Medical Decision Making Was pt. sent in by a medical professional or institution (YADIRA Ware, [employer], urgent care, hospital, or [place] health care facility...) When possible be specific @ -No Did you speak to anyone other than the patient for history (EMS, parent, family, police, friend...)? What history was obtained from this source @ -No Did you review nursing and triage notes (agree or disagree)? Why? @ -I reviewed and disagree with nursing and triage notes. On my discussion with the patient he was asked multiple times if he has been having abdominal pain, diarrhea, constipation or changes in urinary habits and he denies all questions. Patient denies that he is having abdominal pain. Were old charts reviewed (outside hosp., previous admission, EMS record, old EKG, old radiological studies, urgent care reports/EKG's, [place] [facility] facility records)? Report findings @ -No old charts were reviewed Differential Diagnosis (chest pain, altered mental status, abdominal pain women, abdominal pain men, vaginal bleeding, weakness, fever, dyspnea, syncope, headache, dizziness, GI bleed, back pain, seizure, CVA, palpatations, mental health, musculoskeletal)? @ -Differential Musculoskeletal Muscular strain, contusion, ligament sprain, fracture, arthritis, septic arthritis, bursitis, cellulitis, muscle spasm, nerve compression, DVT, arterial occlusion, herpes zoster, electrolyte abnormality, tumor.... This is not meant to be in all inclusive list EKG interpreted by me (3pts min.). @ -None X-rays interpreted by me (1pt min.). @ -X-ray reveals mild to moderate bilateral hypertrophic arthropathy, correlate for femoral acetabular impingement CT interpreted by me (1pt min.). @ -None done U/S interpreted by me (1pt. min.). @ -None done What testing was considered but not performed or refused? (CT, X-rays, U/S, labs)? Why? @ -None What meds were considered but not given or refused? Why? @ -None Did you discuss the management of the patient with other professionals (professionals i.e. YADIRA Ware, [employer], lab, RT, psych nurse, social and political studies professor, television cameraman, teacher, hazard mitigation officer, case resource manager)? Give summary @ -No Was smoking cessation discussed for >3mins.? @ -No Was critical care preformed (if so, how long)? @ -No Were there social determinants of health that impacted care today? How? (Homelessness, low income, unemployed, alcoholism, drug addiction, trans portation, low edu. Level, literacy, decrease access to med. care, [facility], rehab)? @ -No Was there de-escalation of care discussed even if they declined (Discuss DNR or withdrawal of care, Hospice)? DNR status @ -No What co-morbidities impacted this encounter? (DM, HTN, Smoking, COPD, CAD, Cancer, CVA, ARF, Chemo, Hep., AIDS, mental health diagnosis, sleep apnea, morbid obesity)? @ -None Was patient admitted / discharged? Hospital course, mention meds given and route, prescriptions, significant lab abnormalities, going to OR and other pertinent info. @ -Discharge. 83-year-old male with left hip pain. Evaluation the patient is noted to have tenderness to palpation over the left hip and groin region. There are no overlying skin discolorations or abscesses. There is a lipoma over the left lumbar spine measuring approximately 4 cm x 3 cm that is fluctuant. X-ray is remarkable for arthropathy and possible femoral acetabular impingement. Patient is able to bear weight appropriately and therefore CT imaging is deferred. Patient is provided with dose of Toradol emergency department be sent a prescription for Toradol. Recommend that he follows up outpatient with his primary care provider for further evaluation such as potential physical therapy, joint injections, or abdominal line joint replacement. All questions answered at bedside and strict return prior discussed with the patient he is verbalized understanding. Case discussed with Dr. Sher. Undiagnosed new problem with uncertain prognosis? @ -No Drug Therapy requiring intensive monitoring for toxicity (Heparin, Nitro, Insulin, Cardizem)? @ -No Were any procedures done? @ -No Diagnosis/symptom? @ -femoral acetabular impingement, left hip pain Acute, or Chronic, or Acute on Chronic? @ -Acute Uncomplicated (without systemic symptoms) or Complicated (systemic symptoms)? @ -Uncomplicated Side effects of treatment? @ -No Exacerbation, Progression, or Severe Exacerbation? @ -No Poses a threat to life or bodily function? How? (Chest pain, USA, ID, pneumonia, PE, COPD, DKA, ARF, appy, cholecystitis, CVA, Diverticulitis, Homicidal, Suicidal, threat to staff... and all critical care pts) @ -No - Lab Data Result diagrams: 01/12/24 12:05 01/12/24 12:05 Lab Results 01/12/24 01/12/24 Range/Units 12:05 12:05 WBC 9.9 (3.8-10.6) k/uL RBC 4.73 (4.30-5.90) m/uL Hgb 14.4 (13.0-17.5) gm/dL Hct 42.1 (39.0-53.0) % MCV 89.2 (80.0-100.0) fL MCH 30.5 (25.0-35.0) pg MCHC 34.2 (31.0-37.0) g/dL RDW 13.3 (11.5-15.5) % Plt Count 220 (150-450) k/uL MPV 7.7 Neutrophils % 73 % Lymphocytes % 18 % Monocytes % 5 % Eosinophils % 2 % Basophils % 0 % Neutrophils # 7.2 (1.3-7.7) k/uL Lymphocytes # 1.8 (1.0-4.8) k/uL Monocytes # 0.5 (0-1.0) k/uL Eosinophils # 0.2 (0-0.7) k/uL Basophils # 0.0 (0-0.2) k/uL Sodium 139 (137-145) mmol/L Potassium 4.4 (3.5-5.1) mmol/L Chloride 104 (98-107) mmol/L Carbon Dioxide 30 (22-30) mmol/L Anion Gap 5 mmol/L BUN 17 (9-20) mg/dL Creatinine 1.24 (0.66-1.25) mg/dL Est GFR (CKD-EPI)AfAm 63 (>60 ml/min/1.73 sqM) Est GFR (CKD-EPI)NonAf 55 (>60 ml/min/1.73 sqM) Glucose 98 (74-99) mg/dL Calcium 9.6 (8.4-10.2) mg/dL Total Bilirubin 0.7 (0.2-1.3) mg/dL AST 24 (17-59) U/L ALT 18 (4-49) U/L Alkaline Phosphatase 68 (38-126) U/L Total Protein 6.7 (6.3-8.2) g/dL Albumin 4.3 (3.5-5.0) g/dL Amylase 54 (30-110) U/L Lipase 61 (23-300) U/L Disposition Clinical Impression: Left hip pain, Arthropathy of left hip Disposition: HOME SELF-CARE Condition: Good Instructions (If sedation given, give patient instructions): Osteoarthritis (ED), Hip Impingement (ED) Additional Instructions: Return to the emergency department for any new or worsening symptoms. Recommend that you follow-up outpatient with a primary care provider for further evaluation with potential physical therapy referral, joint injections and continued supportive treatment at home. Prescriptions: Ketorolac [Toradol] 10 mg PO Q8HR #15 tab Is patient prescribed a controlled substance at d/c from ED?: No Referrals: Eddie Bernal MD [Primary Care Provider] - 1-2 days Time of Disposition: 13:05
[2024-01-12 12:23] LABS: Basophils % (A) 0 %; Eosinophils # (A) 0.2 k/uL (0-0.7); Eosinophils % (A) 2 %; HCT 42.1 % (39.0-53.0); HGB 14.4 gm/dL (13.0-17.5); Lymphocytes # (A) 1.8 k/uL (1.0-4.8); Lymphocytes % (A) 18 %; MCH 30.5 pg (25.0-35.0); MCHC 34.2 g/dL (31.0-37.0); MCV 89.2 fL (80.0-100.0); Mean Platelet Volume 7.7; Monocytes # (A) 0.5 k/uL (0-1.0); Monocytes % (A) 5 %; Neutrophils # (A) 7.2 k/uL (1.3-7.7); Neutrophils % (A) 73 %; Platelet Count 220 k/uL (150-450); RBC 4.73 m/uL (4.30-5.90); RDW 13.3 % (11.5-15.5); WBC 9.9 k/uL (3.8-10.6)
[2024-01-12 12:37] LABS: ALT 18 U/L (4-49); AST 24 U/L (17-59); African American GFR (CKD) 63 (>60 ml/min/1.73 sqM); Albumin 4.3 g/dL (3.5-5.0); Alkaline Phosphatase 68 U/L (38-126); Amylase 54 U/L (30-110); Anion Gap 5 mmol/L; Blood Urea Nitrogen 17 mg/dL (9-20); Calcium 9.6 mg/dL (8.4-10.2); Carbon Dioxide 30 mmol/L (22-30); Chloride 104 mmol/L (98-107); Glucose 98 mg/dL (74-99); Lipase 61 U/L (23-300); Non-African American GFR(CKD) 55 (>60 ml/min/1.73 sqM); Potassium 4.4 mmol/L (3.5-5.1); Sodium 139 mmol/L (137-145); Total Bilirubin 0.7 mg/dL (0.2-1.3); Total Protein 6.7 g/dL (6.3-8.2)
--- NOTE | 2024-01-12 12:40 | XR ---
EXAMINATION TYPE: XR Hip LT and AP Pelvis DATE OF EXAM: 01/12/2024 COMPARISON: NONE HISTORY: Pain TECHNIQUE: A single AP view of the pelvis is obtained. Two views of the left hip are obtained. FINDINGS: There is degenerative change lower lumbar spine SI joint arthropathy. Mild bilateral hip h ypertrophic arthropathy. Vascular calcifications and generalized demineralization. Sclerosis involvin g bilateral femoral neck likely post arthritic. IMPRESSION: 1. Mild to moderate bilateral hypertrophic arthropathy correlate for femoral acetabular impingement. 2. If there is concern for fracture or difficulty with weightbearing would recommend follow-up CT sca n. [facility], , 01/12/2024 12:41 PM
[2024-01-12] MEDS: KETOROLAC 15 MG/ML 1 ML VIAL IVP STA (13:06)
[2024-01-12 13:08] VITALS: RESP 18
[2024-01-12 13:29] VITALS: BP 139/71; PULSE 78; TEMP 97.9
== END 2024-01-12 13:25 | disposition home or self-care (01) ==
LOC: EC 10:58
DX: R10.9 Unspecified abdominal pain
CPT/HCPCS: 36415; 73502; 80053; 82150; 83690; 85025; 96374; 99284

== ENCOUNTER → 2024-01-20 | Outpatient (CLI) | payer MEDICARE ==
--- NOTE | 2024-01-20 12:08 | US ---
EXAMINATION TYPE: US kidneys/renal and bladder DATE OF EXAM: 01/20/2024 COMPARISON: CT: 09/08/23 CLINICAL INDICATION: Male, 83 years old with history of N13.30 UNSPECIFIED HYDRONEPHROSIS; Pt states he had a lithotripsy 12/09/23 in [place]. Rule out hydro EXAM MEASUREMENTS: Right Kidney: 13.6 x 3.6 x 5.7 cm Left Kidney: 7.9 x 3.1 x 3.1 cm Right Kidney: Dilated renal pelvis. Slightly limited due to bowel gas Left Kidney: 3 echogenic foci seen with posterior shadowing. Largest measuring 1.3 x 1.2 x 0.8cm, ? 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 [facility], , 01/20/2024 12:05 PM
== END | disposition home or self-care (01) ==
LOC: RADUSWWP 11:09
PROVIDERS: ATTEND Urology
DX: N13.30 Unspecified hydronephrosis (principal)
CPT/HCPCS: 76770

== ENCOUNTER 2024-03-19 10:30 | Inpatient (IN) | payer MEDICARE ==
--- NOTE | 2024-03-19 11:05 | ED ---
Abdominal Pain HPI - General Source: patient, family, RN notes reviewed Mode of arrival: ambulatory Limitations: no limitations - History of Present Illness MD Complaint: abdominal pain <Jessie Cintron - Last Filed: 03/19/24 11:05> - General Source: patient, RN notes reviewed, old records reviewed <Yousuf Gutierrez - Last Filed: 03/19/24 16:18> - General Chief Complaint: Abdominal Pain Stated Complaint: Abdominal pain Time Seen by Provider: 03/19/24 10:55 - History of Present Illness Initial Comments: Quick Note: This is an 83-year-old male who presents to the emergency department for abdominal pain. States that it started 5 to 6 days ago. Pain is diffuse, but seems to be worse in the lower abdomen. Denies any nausea or vomiting. States that his last bowel movement was 4 days ago. He tried taking laxatives, however this was not effective. He is still passing gas. He went to urgent care today and had an x-ray demonstrating constipation. He was sent here for further evaluation. Denies any history of bowel obstructions. (Jessie Cintron) Is an 83-year-old male who presented to the emergency department with abdominal pain. States it is diffuse of the anterior abdomen. Thinks he may be constipated as no recent bowel movements. Passing gas. 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 He has been taking laxatives without much improvement. He was sent here for further evaluation. Has no history of bowel obstructions. Workup started as a quick note in triage. Denies any significant urinary complaints. Denies any back pain or flank pain. (Yousuf Gutierrez) - Related Data Home Medications Medication Instructions Recorded Confirmed Aspirin EC [Ecotrin Low Dose] 81 mg PO DAILY 11/28/21 03/19/24 amLODIPine [Norvasc] 2.5 mg PO DAILY 11/28/21 03/19/24 lisinopriL [Zestril] 10 mg PO DAILY 11/28/21 03/19/24 Balance And Nature Vitamins 3 tab PO DAILY 09/08/23 03/19/24 amLODIPine [Norvasc] 5 mg PO DAILY 09/08/23 03/19/24 Allergies Allergy/AdvReac Type Severity Reaction Status Date / Time No Known Allergies Allergy Verified 03/19/24 15:58 Review of Systems ROS Other: All systems not noted in ROS Statement are negative. <Jessie Cintron - Last Filed: 03/19/24 11:05> ROS Other: All systems not noted in ROS Statement are negative. <Yousuf Gutierrez - Last Filed: 03/19/24 16:18> ROS Statement: Those systems with pertinent positive or pertinent negative responses have been documented in the HPI. Review of Systems: CONST: Denies fever EYES: Denies blurry vision ENT: Denies nasal congestion C/V: Denies Chest pain RESP: Denies shortness of breath GI: Endorses abdominal pain : Denies dysuria SKIN: Denies rash. MSK: Denies joint pain. NEURO: Denies headache (Yousuf Gutierrez) Past Medical History Past Medical History: Hypertension, Osteoarthritis (OA) Additional Past Medical History / Comment(s): ABDOMINAL PAIN, KIDNEY STONE, History of Any Multi-Drug Resistant Organisms: None Reported Past Surgical History: Hernia Repair Additional Past Surgical History / Comment(s): left little finger surgery, Past Anesthesia/Blood Transfusion Reactions: No Reported Reaction Past Psychological History: No Psychological Hx Reported Smoking Status: Former smoker Past Alcohol Use History: None Reported Past Drug Use History: None Reported - Past Family History Mother Family Medical History: No Reported History Brother(s) Family Medical History: Cancer <Jessie Cintron - Last Filed: 03/19/24 11:05> General Exam Limitations: no limitations <Jessie Cintron - Last Filed: 03/19/24 11:05> <Yousuf Gutierrez - Last Filed: 03/19/24 16:18> - General Exam Comments Initial Comments: Visual Physical Exam Vital signs reviewed General: Well-appearing, nontoxic, no acute distress. Head: Normocephalic, atraumatic Eyes: PERRLA, EOMI ENT: Airway patent Chest: Nonlabored breathing Skin: No visual rash, normal skin tone Neuro: Alert and oriented 3 Musculoskeletal: No gross abnormalities (Jessie Cintron) General: Appears in no acute distress. HEAD: Normal with no signs of head trauma. EYES: EOMI ENT: Hearing grossly intact, normal oropharynx. RESPIRATORY: Clear breath sounds bilaterally. No wheezes, rales, or rhonchi. C/V: Regular rate and rhythm. S1 and S2 auscultated, no edema, peripheral pulses 2+ and intact throughout ABD: Abdomen is soft, nondistended. Anterior abdominal discomfort on palpation. No guarding or rebound tenderness. No peritoneal signs.-CVA tenderness to percussion. EXT: No obvious deformity. SKIN: No rashes or lesions observed on exposed skin. NEURO: Alert and oriented x 4. (Yousuf Gutierrez) Course Vital Signs 03/19/24 03/19/24 03/19/24 10:41 14:45 15:00 Temperature 98.9 F Pulse Rate 76 75 96 Respiratory 16 20 20 Rate Blood Pressure 150/76 145/78 161/87 O2 Sat by Pulse 98 98 94 L Oximetry Medical Decision Making <Jessie Cintron - Last Filed: 03/19/24 11:05> - Lab Data Result diagrams: 03/19/24 11:20 03/19/24 11:20 <Yousuf Gutierrez - Last Filed: 03/19/24 16:18> - Medical Decision Making I performed the QuickNote portion of this chart. Signed Jessie Cintron PA-C. (Jessie Cintron) Was pt. sent in by a medical professional or institution (YADIRA Ware, [employer], urgent care, hospital, or long-term...) When possible be specific @ -No Did you speak to anyone other than the patient for history (EMS, parent, family, police, friend...)? What history was obtained from this source @ -No Did you review nursing and triage notes (agree or disagree)? Why? @ -I reviewed and agree with nursing and triage notes Were old charts reviewed (outside hosp., previous admission, EMS record, old EKG, old radiological studies, urgent care reports/EKG's, long-term records)? Report findings @ -No old charts were reviewed Differential Diagnosis (chest pain, altered mental status, abdominal pain women, abdominal pain men, vaginal bleeding, weakness, fever, dyspnea, syncope, headache, dizziness, GI bleed, back pain, seizure, CVA, palpatations, mental health, musculoskeletal)? @ -Differential Abdominal Pain Men: Appendicitis, cholecystitis, diverticulosis, ischemic bowel, pancreatitis, hepatitis, UTI, gastroenteritis, AAA, incarcerated hernia, bowel obstruction, constipation, inflammatory bowel, hepatitis, peptic ulcer disease, splenic infarction, perforated viscus, testicular torsion, this is not meant to be an all-inclusive list EKG interpreted by me (3pts min.). @ -As above X-rays interpreted by me (1pt min.). @ -None done CT interpreted by me (1pt min.). @ -CT abdomen pelvis reveals findings concerning for pyelonephritis on the left. Patient does have a large renal stone up to 9 mm at the left renal collecting system renal pelvis with mild to moderate hydronephrosis. No ureteral stone present. Patient does have a bladder stone. U/S interpreted by me (1pt. min.). @ -None done What testing was considered but not performed or refused? (CT, X-rays, U/S, labs)? Why? @ -None What meds were considered but not given or refused? Why? @ -None Did you discuss the management of the patient with other professionals (professionals i.e. DrJennifer, PA, [employer], lab, RT, psych nurse, social sciences instructor, certified medical coding specialist, teacher, loan officer, manager of case management)? Give summary @ -Discussed with on-call urologist, Dr. Dominguez who was in agreement with plan for admission to medicine on IV antibiotics. We both agree that low suspicion for significantly infected stone at this time as he would expect mild hydronephrosis which a renal pelvis stone. I did inform him the fact that the patient has a horseshoe kidney.Recommended admission to medicine and he will follow along as a sap pp consultant. Discussed with Dr. Lakhani who accepted the admission. Was smoking cessation discussed for >3mins.? @ -No Was critical care preformed (if so, how long)? @ -No Were there social determinants of health that impacted care today? How? (Homelessness, low income, unemployed, alcoholism, drug addiction, transportation, low edu. Level, literacy, decrease access to med. care, long-term, rehab)? @ -No Was there de-escalation of care discussed even if they declined (Discuss DNR or withdrawal of care, Hospice)? DNR status @ -No What co-morbidities impacted this encounter? (DM, HTN, Smoking, COPD, CAD, Canc er, CVA, ARF, Chemo, Hep., AIDS, mental health diagnosis, sleep apnea, morbid obesity)? @ -None Was patient admitted / discharged? Hospital course, mention meds given and route, prescriptions, significant lab abnormalities, going to OR and other pertinent info. @ -Presents with abdominal pain. Workup completed prior to me evaluating the patient as he was urgently presenting as a quick note. Vital signs within acceptable limits. Laboratory studies remarkable for leukocytosis of 17.8. Mild BEATRIZ as well with a BUN of 25 and creatinine of 1.69. Urinalysis remarkable for positive nitrites, small amount of leukocyte esterase, as well as [address] imaging obtained revealed concerning findings for pyelonephritis on the left. Patient also has a large 9 mm nephrolithiasis on the left however it is in the renal pelvis and is not in the ureter. There is mild hydronephrosis present which is expected with this. I discussed the results with the patient. He is asking for something for the constipation and will be given an enema. No evidence of obstruction on CT. Patient will also be symptomatically treat with IV fluids, cefepime, we will obtain cultures. I spoke about the case with Dr. Dominguez who was in agreement with plan for admission to the hospital under medicine and he will follow along as a sap pp consultant. Agrees that the stone is likely not acutely obstructive and findings are likely chronic regarding the hydronephrosis considering the size of the stone. However we will treat for pyelonephritis with IV cefepime. Patient will be admitted to [facility]. Dr. Lakhani accepted the admission. Undiagnosed new problem with uncertain prognosis? @ -No Drug Therapy requiring intensive monitoring for toxicity (Heparin, Nitro, Insulin, Cardizem)? @ -No Were any procedures done? @ -No Diagnosis/symptom? @ -Kidney stone, pyelonephritis Acute, or Chronic, or Acute on Chronic? @ -Acute Uncomplicated (without systemic symptoms) or Complicated (systemic symptoms)? @ -Complicated Side effects of treatment? @ -No Exacerbation, Progression, or Severe Exacerbation? @ -No Poses a threat to life or bodily function? How? (Chest pain, [place], [place], pneumonia, PE, COPD, DKA, ARF, appy, cholecystitis, CVA, Diverticulitis, Homicidal, Suicidal, threat to staff... and all critical care pts) @ -Possibly, yes (Yousuf Gutierrez) - Lab Data Lab Results 03/19/24 03/19/24 03/19/24 Range/Units 11:20 11:20 11:20 WBC 17.8 H (3.8-10.6) k/uL RBC 4.45 (4.30-5.90) m/uL Hgb 13.3 (13.0-17.5) gm/dL Hct 39.4 (39.0-53.0) % MCV 88.6 (80.0-100.0) fL MCH 30.0 (25.0-35.0) pg MCHC 33.9 (31.0-37.0) g/dL RDW 13.2 (11.5-15.5) % Plt Count 270 (150-450) k/uL MPV 7.3 Neutrophils % 79 % Lymphocytes % 11 % Monocytes % 7 % Eosinophils % 1 % Basophils % 0 % Neutrophils # 14.1 H (1.3-7.7) k/uL Lymphocytes # 2.0 (1.0-4.8) k/uL Monocytes # 1.2 H (0-1.0) k/uL Eosinophils # 0.1 (0-0.7) k/uL Basophils # 0.1 (0-0.2) k/uL Sodium 139 (137-145) mmol/L Potassium 4.2 (3.5-5.1) mmol/L Chloride 105 (98-107) mmol/L Carbon Dioxide 25 (22-30) mmol/L Anion Gap 9 mmol/L BUN 25 H (9-20) mg/dL Creatinine 1.69 H (0.66-1.25) mg/dL Est GFR (CKD-EPI)AfAm 43 (>60 ml/min/1.73 sqM) Est GFR (CKD-EPI)NonAf 37 (>60 ml/min/1.73 sqM) Glucose 106 H (74-99) mg/dL Plasma Lactic Acid Brandon 0.7 (0.7-2.0) mmol/L Calcium 8.8 (8.4-10.2) mg/dL Total Bilirubin 1.0 (0.2-1.3) mg/dL AST 25 (17-59) U/L ALT 27 (4-49) U/L Alkaline Phosphatase 105 (38-126) U/L Total Protein 6.4 (6.3-8.2) g/dL Albumin 3.7 (3.5-5.0) g/dL Amylase 33 (30-110) U/L Lipase 31 (23-300) U/L Urine Color Urine Appearance (Clear) Urine pH (5.0-8.0) Ur Specific [place] (1.001-1.035) Urine Protein (Negative) Urine Glucose (UA) (Negative) Urine Ketones (Negative) Urine Blood (Negative) Urine Nitrite (Negative) Urine Bilirubin (Negative) Urine Urobilinogen (<2.0) mg/dL Ur Leukocyte Esterase (Negative) Urine RBC (0-5) /hpf Urine WBC (0-5) /hpf Urine Mucus (None) /hpf 03/19/24 Range/Units 14:35 WBC (3.8-10.6) k/uL RBC (4.30-5.90) m/uL Hgb (13.0-17.5) gm/dL Hct (39.0-53.0) % MCV (80.0-100.0) fL MCH (25.0-35.0) pg MCHC (31.0-37.0) g/dL RDW (11.5-15.5) % Plt Count (150-450) k/uL MPV Neutrophils % % Lymphocytes % % Monocytes % % Eosinophils % % Basophils % % Neutrophils # (1.3-7.7) k/uL Lymphocytes # (1.0-4.8) k/uL Monocytes # (0-1.0) k/uL Eosinophils # (0-0.7) k/uL Basophils # (0-0.2) k/uL Sodium (137-145) mmol/L Potassium (3.5-5.1) mmol/L Chloride (98-107) mmol/L Carbon Dioxide (22-30) mmol/L Anion Gap mmol/L BUN (9-20) mg/dL Creatinine (0.66-1.25) mg/dL Est GFR (CKD-EPI)AfAm (>60 ml/min/1.73 sqM) Est GFR (CKD-EPI)NonAf (>60 ml/min/1.73 sqM) Glucose (74-99) mg/dL Plasma Lactic Acid Brandon (0.7-2.0) mmol/L Calcium (8.4-10.2) mg/dL Total Bilirubin (0.2-1.3) mg/dL AST (17-59) U/L ALT (4-49) U/L Alkaline Phosphatase (38-126) U/L Total Protein (6.3-8.2) g/dL Albumin (3.5-5.0) g/dL Amylase (30-110) U/L Lipase (23-300) U/L Urine Color Yellow Urine Appearance Clear (Clear) Urine pH 5.5 (5.0-8.0) Ur Specific [place] 1.022 (1.001-1.035) Urine Protein 1+ H (Negative) Urine Glucose (UA) Negative (Negative) Urine Ketones 1+ H (Negative) Urine Blood Negative (Negative) Urine Nitrite Positive (Negative) Urine Bilirubin Negative (Negative) Urine Urobilinogen <2.0 (<2.0) mg/dL Ur Leukocyte Esterase Small H (Negative) Urine RBC 3 (0-5) /hpf Urine WBC 11 H (0-5) /hpf Urine Mucus Rare H (None) /hpf Disposition <Jessie Cintron - Last Filed: 03/19/24 11:05> Time of Disposition: 15:30 <Yousuf Gutierrez - Last Filed: 03/19/24 16:18> Clinical Impression: Pyelonephritis, Kidney stone Disposition: ADMITTED IP TO THIS [facility] Condition: Stable
[2024-03-19 11:34] LABS: Basophils # (A) 0.1 k/uL (0-0.2); Basophils % (A) 0 %; Eosinophils # (A) 0.1 k/uL (0-0.7); Eosinophils % (A) 1 %; HCT 39.4 % (39.0-53.0); HGB 13.3 gm/dL (13.0-17.5); Lymphocytes % (A) 11 %; MCHC 33.9 g/dL (31.0-37.0); MCV 88.6 fL (80.0-100.0); Mean Platelet Volume 7.3; Monocytes # (A) 1.2 k/uL (0-1.0); Monocytes % (A) 7 %; Neutrophils # (A) 14.1 k/uL (1.3-7.7); Neutrophils % (A) 79 %; Platelet Count 270 k/uL (150-450); RBC 4.45 m/uL (4.30-5.90); RDW 13.2 % (11.5-15.5); WBC 17.8 k/uL (3.8-10.6)
[2024-03-19 11:43] LABS: ALT 27 U/L (4-49); AST 25 U/L (17-59); African American GFR (CKD) 43 (>60 ml/min/1.73 sqM); Albumin 3.7 g/dL (3.5-5.0); Alkaline Phosphatase 105 U/L (38-126); Amylase 33 U/L (30-110); Anion Gap 9 mmol/L; Blood Urea Nitrogen 25 mg/dL (9-20); Calcium 8.8 mg/dL (8.4-10.2); Carbon Dioxide 25 mmol/L (22-30); Chloride 105 mmol/L (98-107); Glucose 106 mg/dL (74-99); Lipase 31 U/L (23-300); Non-African American GFR(CKD) 37 (>60 ml/min/1.73 sqM); Potassium 4.2 mmol/L (3.5-5.1); Sodium 139 mmol/L (137-145); Total Protein 6.4 g/dL (6.3-8.2)
--- NOTE | 2024-03-19 13:08 | CT ---
EXAMINATION TYPE: CT abdomen pelvis wo con DATE OF EXAM: 03/19/2024 12:40 PM COMPARISON: CT abdomen pelvis most recent from CLINICAL INDICATION: Male, 83 years old with history of Abdominal pain, acute, nonlocalized; Abdomina l pain acute, nonlocalized TECHNIQUE: Axial CT abdomen pelvis wo con;Sagittal and coronal reformats were created on a separate workstation. Contrast used: mL of , (none if empty) Oral contrast used: without Oral Contrast (none if empty) CT DLP: 603.3 mGycm, Automated exposure control for dose reduction was used. FINDINGS: LOWER CHEST: Unremarkable ABDOMEN LIVER: Unremarkable GALLBLADDER AND BILE DUCTS: Distended gallbladder and common bile duct no obstructing calculus visual ized. PANCREAS: Unremarkable. SPLEEN: Scattered calcified granulomas. ADRENAL GLANDS: Unremarkable. KIDNEYS AND URETERS: Horseshoe kidney with multiple stones identified there is facet joint changes on the left renal collecting system with suspected 9 mm calculus at the ureteropelvic junction obstruct ion the left renal pelvis. Additional nonobstructing calculi on the left and right. PELVIS BLADDER: No evidence for wall thickening or mass given limitations of exam. Bladder stone in the urin john bladder on the left measuring up to 5 mm. REPRODUCTIVE: Unremarkable. ABDOMEN & PELVIS STOMACH AND BOWEL: No evidence of bowel obstruction. Moderate hiatal hernia. Scattered colonic divert icula. PERITONEUM/RETROPERITONEUM: No evidence of pneumoperitoneum or free fluid. VASCULATURE: Mild atherosclerotic calcifications are present throughout the abdominal aorta and its b ranches. No evidence of aortic aneurysm. MUSCULOSKELETAL: No acute osseous abnormalities LYMPH NODES: No gross evidence for lymphadenopathy. SOFT TISSUE/ABDOMINAL WALL: Large right inguinal hernia extending into the scrotum.r IMPRESSION: 1. 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 Urologic consultation recommended. 2. Nonobstructing bilateral renal calculi also present. 3. Bladder stone present. 4. Colonic diverticulosis. 5. Moderate hiatal hernia. 6. Prostatomegaly, correlate with serum PSA. 7. Large right inguinal hernia with fat plane of the scrotum. [facility], , 03/19/2024 1:05 PM
[2024-03-19 14:45] LABS: Appearance,Urine Clear (Clear); Bilirubin,Urine Negative (Negative); Blood,Urine Negative (Negative); Color,Urine Yellow; Glucose,Urine (UA) Negative (Negative); Ketones,Urine 1+ (Negative); Leukocyte Esterase,Urine Small (Negative); Mucus,Urine Rare /hpf; Nitrite,Urine Positive (Negative); PH, Urine 5.5 (5.0-8.0); Protein,Urine 1+ (Negative); RBC,Urine 3 /hpf (0-5); Specific Gravity,Urine 1.022 (1.001-1.035); Urobilinogen,Urine <2.0 mg/dL (<2.0); WBC,Urine 11 /hpf (0-5)
[2024-03-19] MEDS: SODIUM CHLORIDE 0.9% 1,000 ML IV STA ×2 (14:46→14:49)
[2024-03-19] MEDS: CEFEPIME 2 GM in SODIUM CHLORIDE 0.9% 100 ML IVPB STA (14:48)
[2024-03-19] MEDS: ONDANSETRON 4 MG/2 ML VIAL IVP STA (14:51)
[2024-03-19] MEDS: KETOROLAC 15 MG/ML 1 ML VIAL IVP STA (14:52)
[2024-03-19] MEDS ORDERED: NALOXONE 0.4 MG/ML 1 ML VIAL IV PRN (15:26)
[2024-03-19] MEDS: NA PHOS,M-B/NA PHOS,DI-BA 133 ML ENEMA RECTAL STA (15:57)
[2024-03-20] MEDS: CEFEPIME 2 GM in SODIUM CHLORIDE 0.9% 100 ML IVPB SCH (00:17)
[2024-03-20 09:05] LABS: Basophils # (A) 0.03 X 10*3/uL (0.00-0.10); Basophils % (A) 0.2 %; Eosinophils # (A) 0.09 X 10*3/uL (0.04-0.35); Eosinophils % (A) 0.6 %; HCT 36.1 % (39.6-50.0); HGB 12.2 g/dL (13.0-17.0); Lymphocytes # (A) 1.67 X 10*3/uL (0.90-5.00); Lymphocytes % (A) 11.2 %; MCHC 33.8 g/dL (32.0-37.0); Monocytes # (A) 1.24 X 10*3/uL (0.20-1.00); Monocytes % (A) 8.4 %; NRBC Per 100 WBC 0 X 10*3/uL (0.00-0.01); Neutrophils % (A) 78.8 %; Platelet Count 250 X 10*3/uL (140-440); RDW 13.6 % (11.5-14.5); WBC 14.85 X 10*3/uL (4.50-10.00)
[2024-03-20] MEDS: amLODIPine 5 MG TAB PO SCH (09:05)
[2024-03-20] MEDS: amLODIPine 2.5 MG TAB PO SCH (09:05)
[2024-03-20] MEDS: lisinopriL 10 MG TAB PO SCH (09:05)
[2024-03-20] MEDS: ASPIRIN 81 MG PO SCH (09:05)
[2024-03-20 09:27] LABS: ALT 29 U/L (10-49); AST 27 U/L (14-35); Albumin 3.3 g/dL (3.8-4.9); Albumin/Globulin Ratio 1.57 Ratio (1.60-3.17); Alkaline Phosphatase 95 U/L (41-126); BUN/Creat Ratio 11.73 Ratio (12.00-20.00); Blood Urea Nitrogen 17.6 mg/dL (9.0-27.0); Calcium 7.9 mg/dL (8.7-10.3); Carbon Dioxide 21.8 mmol/L (21.6-31.8); Chloride 109 mmol/L (96-109); Globulin 2.1 g/dL (1.6-3.3); Glucose 115 mg/dL (70-110); Potassium 3.5 mmol/L (3.5-5.5); Sodium 143 mmol/L (135-145); Total Bilirubin 0.6 mg/dL (0.3-1.2); Total Protein 5.4 g/dL (6.2-8.2)
--- NOTE | 2024-03-20 11:02 | P.GSCN ---
History of Present Illness Consult date: 03/20/24 History of present illness: 83 yo male with a horse shoe kidney presented with abdominal pain. He has a known history of stones and apparently has seen Dr beltran for this in the past. A ct scan identifies bilateral renal stones and possibly a left upj stone. There is question whether he has a uti. He is afebrile. in 2021 attempted to do a right ureteroscopy and laser lithotripsy but that failed. He eventually was sent down to [facility] as a stone continue to cause problems. Last summer he had a right percutaneous nephrostolithotomy at [facility]. He presented to this hospitalization with constipation. The constipation is been relieved and his abdominal discomfort is gone but the stone identified is present. It is difficult to say whether the stone is in the UPJ due to the malrotation of the kidney I'll and the lack of contrast and the unclear passageway of the UPJ and left ureter.the patient may have a urine infection. His white count on admission was 17,000 it is 14,000 today. He is afebrile. Review of Systems All systems: negative - Constitutional Denies fever, Denies weight loss - EENT Eyes: denies blurred vision Ears, nose, mouth and throat: Denies dysphagia - Cardiovascular Denies chest pain, Denies shortness of breath - Respiratory Denies cough, Denies 7 - Gastrointestinal Reports as per HPI - Genitourinary Denies dysuria, Denies hematuria - Integumentary Denies rash, Denies unusual bruising - Neurological Denies headaches, Denies syncope - Hematologic/Lymphatic Denies easy bleeding, Denies easy bruising Past Medical History Past Medical History: Hypertension, Osteoarthritis (OA) Additional Past Medical History / Comment(s): ABDOMINAL PAIN, KIDNEY STONE, History of Any Multi-Drug Resistant Organisms: None Reported Past Surgical History: Hernia Repair Additional Past Surgical History / Comment(s): left little finger surgery, Past Anesthesia/Blood Transfusion Reactions: No Reported Reaction Past Psychological History: No Psychological Hx Reported Smoking Status: Former smoker Past Alcohol Use History: None Reported Past Drug Use History: None Reported - Past Family History Mother Family Medical History: No Reported History Brother(s) Family Medical History: Cancer Medications and Allergies Home Medications Medication Instructions Recorded Confirmed Type Aspirin EC [Ecotrin Low Dose] 81 mg PO DAILY 11/28/21 03/19/24 History amLODIPine [Norvasc] 2.5 mg PO DAILY 11/28/21 03/19/24 History lisinopriL [Zestril] 10 mg PO DAILY 11/28/21 03/19/24 History Balance And Nature Vitamins 3 tab PO DAILY 09/08/23 03/19/24 History amLODIPine [Norvasc] 5 mg PO DAILY 09/08/23 03/19/24 History Allergies Allergy/AdvReac Type Severity Reaction Status Date / Time No Known Allergies Allergy Verified 03/19/24 15:58 Surgical - Exam Vital Signs Temp Pulse Resp BP Pulse Ox 98.9 F 76 16 150/76 98 03/19/24 10:41 03/19/24 10:41 03/19/24 10:41 03/19/24 10:41 03/19/24 10:41 - General well developed, well nourished, no distress - Eyes normal ocular movement, no icteric - ENT no hearing loss, no congestion - Neck no masses, trachea midline - Respiratory normal respiratory effort, clear to auscultation - Abdomen Abdomen: soft, non tender, no guarding, no rigid, no rebound - Integumentary no rash, no abnormal pigmentation - Neurologic no disoriented, no combative - Psychiatric oriented to time, oriented to person, oriented to place, speech is normal, memory intact Results - Labs 03/20/24 04:10 03/20/24 04:10 Abnormal Lab Results - Last 24 Hours (Table) 03/19/24 03/19/24 03/19/24 Range/Units 11:20 11:20 14:35 WBC 17.8 H (3.8-10.6) k/uL Neutrophils # 14.1 H (1.3-7.7) k/uL Monocytes # 1.2 H (0-1.0) k/uL BUN 25 H (9-20) mg/dL Creatinine 1.69 H (0.66-1.25) mg/dL Glucose 106 H (74-99) mg/dL Urine Protein 1+ H (Negative) Urine Ketones 1+ H (Negative) Ur Leukocyte Esterase Small H (Negative) Urine WBC 11 H (0-5) /hpf Urine Mucus Rare H (None) /hpf Diabetes panel 03/19/24 Range/Units 11:20 Sodium 139 (137-145) mmol/L Potassium 4.2 (3.5-5.1) mmol/L Chloride 105 (98-107) mmol/L Carbon Dioxide 25 (22-30) mmol/L BUN 25 H (9-20) mg/dL Creatinine 1.69 H (0.66-1.25) mg/dL Glucose 106 H (74-99) mg/dL Calcium 8.8 (8.4-10.2) mg/dL AST 25 (17-59) U/L ALT 27 (4-49) U/L Alkaline Phosphatase 105 (38-126) U/L Total Protein 6.4 (6.3-8.2) g/dL Albumin 3.7 (3.5-5.0) g/dL Calcium panel 03/19/24 Range/Units 11:20 Calcium 8.8 (8.4-10.2) mg/dL Albumin 3.7 (3.5-5.0) g/dL Pituitary panel 03/19/24 Range/Units 11:20 Sodium 139 (137-145) mmol/L Potassium 4.2 (3.5-5.1) mmol/L Chloride 105 (98-107) mmol/L Carbon Dioxide 25 (22-30) mmol/L BUN 25 H (9-20) mg/dL Creatinine 1.69 H (0.66-1.25) mg/dL Glucose 106 H (74-99) mg/dL Calcium 8.8 (8.4-10.2) mg/dL Adrenal panel 03/19/24 Range/Units 11:20 Sodium 139 (137-145) mmol/L Potassium 4.2 (3.5-5.1) mmol/L Chloride 105 (98-107) mmol/L Carbon Dioxide 25 (22-30) mmol/L BUN 25 H (9-20) mg/dL Creatinine 1.69 H (0.66-1.25) mg/dL Glucose 106 H (74-99) mg/dL Calcium 8.8 (8.4-10.2) mg/dL Total Bilirubin 1.0 (0.2-1.3) mg/dL AST 25 (17-59) U/L ALT 27 (4-49) U/L Alkaline Phosphatase 105 (38-126) U/L Total Protein 6.4 (6.3-8.2) g/dL Albumin 3.7 (3.5-5.0) g/dL - Imaging CT scan - abdomen: report reviewed, image reviewed CT scan - pelvis: report reviewed, image reviewed Assessment and Plan Assessment: Impression: bilateral renal stones, possible left upj stone, possible uti. Horseshoe kidney with altered positional anatomy Recommendations: He should continue with antibiotics pending the culture. I will review the computed tomography scan with and we'll make a further decision as to how we want to handle this stone and whether indeed it is in the proximal left ureter, UPJ. Time with Patient: Greater than 30
--- NOTE | 2024-03-20 13:09 | P.HPIM ---
History of Present Illness H&P Date: 03/20/24 History of present illness; patient is a 83-year-old gentleman with past medical history significant for hypertension who presented to the ER because abdominal pain. Patient stated he was all right 5 days back when he started developing abdominal pain that was located in the lower quadrants, cramping in nature, nonradiating, associated with reduced bowel movements. Patient was denying any nausea or vomiting. Patient was complaining of constipation. There was no complaint of fever or chills. There was no complaint of chest pain or shortness of breath. Because of this abdominal pain, patient presented to the urgent care where they did abdominal x-ray that showed constipation. Patient was referred to the ER. 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 Patient admitted to internal medicine service REVIEW OF SYSTEMS: CONSTITUTIONAL: No fever, no malaise, no fatigue. HEENT: No recent visual problems or hearing problems. Denied any sore throat. CARDIOVASCULAR: No chest pain, orthopnea, PND, no palpitations, no syncope. PULMONARY: No shortness of breath, no cough, no hemoptysis. GASTROINTESTINAL: As mentioned above NEUROLOGICAL: No headaches, no weakness, no numbness. HEMATOLOGICAL: Denies any bleeding or petechiae. GENITOURINARY: Denies any burning micturition, frequency, or urgency. MUSCULOSKELETAL/RHEUMATOLOGICAL: Denies any joint pain, swelling, or any muscle pain. ENDOCRINE: Denies any polyuria or polydipsia. The rest of the 14-point review of systems is negative. PHYSICAL EXAMINATION: GENERAL: The patient is alert and oriented x3, not in any acute distress. Well developed, well nourished. HEENT: Pupils are round and equally reacting to light. EOMI. No scleral icterus. No conjunctival pallor. Normocephalic, atraumatic. No pharyngeal erythema. No thyromegaly. CARDIOVASCULAR: S1 and S2 present. No murmurs, rubs, or gallops. PULMONARY: Chest is clear to auscultation, no wheezing or crackles. ABDOMEN: Soft, nontender, nondistended, normoactive bowel sounds. No palpable organomegaly. MUSCULOSKELETAL: No joint swelling or deformity. EXTREMITIES: No cyanosis, clubbing, or pedal edema. NEUROLOGICAL: Gross neurological examination did not reveal any focal deficits. SKIN: No rashes. 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 Continue same treatment. Continue with symptomatic treatment. Resume home medication. Monitor labs and vitals. DVT and GI prophylaxis. Further recommendations as per clinical course of the p atient Dictation was produced using [employer] dictation software. please excuse any grammatical, word or spelling errors. Past Medical History Past Medical History: Hypertension, Osteoarthritis (OA) Additional Past Medical History / Comment(s): ABDOMINAL PAIN, KIDNEY STONE, History of Any Multi-Drug Resistant Organisms: None Reported Past Surgical History: Hernia Repair Additional Past Surgical History / Comment(s): left little finger surgery, Past Anesthesia/Blood Transfusion Reactions: No Reported Reaction Past Psychological History: No Psychological Hx Reported Smoking Status: Former smoker Past Alcohol Use History: None Reported Past Drug Use History: None Reported - Past Family History Mother Family Medical History: No Reported History Brother(s) Family Medical History: Cancer Medications and Allergies Home Medications Medication Instructions Recorded Confirmed Type Aspirin EC [Ecotrin Low Dose] 81 mg PO DAILY 11/28/21 03/19/24 History amLODIPine [Norvasc] 2.5 mg PO DAILY 11/28/21 03/19/24 History lisinopriL [Zestril] 10 mg PO DAILY 11/28/21 03/19/24 History Balance And Nature Vitamins 3 tab PO DAILY 09/08/23 03/19/24 History amLODIPine [Norvasc] 5 mg PO DAILY 09/08/23 03/19/24 History Allergies Allergy/AdvReac Type Severity Reaction Status Date / Time No Known Allergies Allergy Verified 03/19/24 15:58 Physical Exam Vitals: Vital Signs Temp Pulse Pulse Resp BP BP Pulse Ox 03/20/24 08:00 99.3 F 74 17 145/70 92 L 03/20/24 06:00 67 16 127/72 94 L 03/20/24 04:00 68 18 137/67 96 03/20/24 02:00 70 18 123/64 94 L 03/20/24 00:00 71 18 123/67 96 03/19/24 22:00 84 18 127/72 97 03/19/24 20:00 73 18 121/65 96 03/19/24 19:21 96 03/19/24 19:20 86 L 03/19/24 17:54 75 20 131/69 92 L 03/19/24 17:00 90 20 140/87 98 03/19/24 16:00 90 20 147/89 98 03/19/24 15:00 96 20 161/87 94 L 03/19/24 14:45 75 20 145/78 98 03/19/24 10:41 98.9 F 76 16 150/76 98 Results CBC & Chem 7: 03/20/24 04:10 03/20/24 04:10 Labs: Abnormal Lab Results - Last 24 Hours (Table) 03/19/24 03/19/24 03/19/24 Range/Units 11:20 11:20 14:35 WBC 17.8 H (3.8-10.6) k/uL Neutrophils # 14.1 H (1.3-7.7) k/uL Monocytes # 1.2 H (0-1.0) k/uL BUN 25 H (9-20) mg/dL Creatinine 1.69 H (0.66-1.25) mg/dL Glucose 106 H (74-99) mg/dL Urine Protein 1+ H (Negative) Urine Ketones 1+ H (Negative) Ur Leukocyte Esterase Small H (Negative) Urine WBC 11 H (0-5) /hpf Urine Mucus Rare H (None) /hpf
[2024-03-21 08:35] LABS: Basophils # (A) 0.04 X 10*3/uL (0.00-0.10); Basophils % (A) 0.3 %; Eosinophils # (A) 0.16 X 10*3/uL (0.04-0.35); Eosinophils % (A) 1.3 %; HCT 34.7 % (39.6-50.0); HGB 11.7 g/dL (13.0-17.0); Lymphocytes # (A) 1.76 X 10*3/uL (0.90-5.00); MCH 30.1 pg (27.0-32.0); MCHC 33.7 g/dL (32.0-37.0); MCV 89.2 FL (80.0-97.0); Mean Platelet Volume 10.6 FL (9.5-12.2); Monocytes # (A) 0.94 X 10*3/uL (0.20-1.00); Monocytes % (A) 7.5 %; NRBC Per 100 WBC 0 X 10*3/uL (0.00-0.01); Neutrophils # (A) 9.53 X 10*3/uL (1.80-7.70); Platelet Count 261 X 10*3/uL (140-440); RBC 3.89 X 10*6/uL (4.40-5.60); RDW 13.6 % (11.5-14.5); WBC 12.54 X 10*3/uL (4.50-10.00)
--- NOTE | 2024-03-21 08:53 | P.CONS ---
History of Present Illness - Reason for Consult Consult date: 03/20/24 Acute pyelonephritis Requesting physician: Deepak Lakhani - Chief Complaint abdominal pain x 1 day - History of Present Illness Patient is 83-year-old male with a past medical history significant for hypertension osteoarthritis kidney stone former smoker patient was brought into the hospital for evaluation of abdominal pain that apparently has been going on for the last 5 to 6 days patient pain has been diffused was mostly in the lower abdominal area patient denies any nausea vomiting did not have a bowel movement for 4 days patient has taken some laxative without improvement patient went to the urgent care with the patient did have x-ray suggestive of constip ation for the patient was sent to the ER on arrival to the ER patient did have a low-grade fever of 99.3 F patient was not tachycardic hypotensive or hypoxic he did have a white count of 17.8 with a left shift did have elevated bili creatinine liver isms are normal patient did have positive UA Urine culture currently pending patient did have abdominal pelvis CT horseshoe kidney versus cost fused ectopia with a calculus in the left renal collecting system with mild to moderate hydronephrosis and fat stranding correlate for pyelonephritis patient has been evaluated by urology and recommended antibiotics and observation infectious he was consulted for further management of antibiotic therapy patient is currently on cefepime 2 g every 8 hours and mention some improvement in his abdominal pain no nausea no vomiting Review of Systems Positive point and negatives has been mentioned in the HPI, complete review of systems was performed and all other systems are negative Past Medical History Past Medical History: Hypertension, Osteoarthritis (OA) Additional Past Medical History / Comment(s): ABDOMINAL PAIN, KIDNEY STONE, History of Any Multi-Drug Resistant Organisms: None Reported Past Surgical History: Hernia Repair Additional Past Surgical History / Comment(s): left little finger surgery, Past Anesthesia/Blood Transfusion Reactions: No Reported Reaction Past Psychological History: No Psychological Hx Reported Smoking Status: Former smoker Past Alcohol Use History: None Reported Past Drug Use History: None Reported - Past Family History Mother Family Medical History: No Reported History Brother(s) Family Medical History: Cancer Medications and Allergies Home Medications Medication Instructions Recorded Confirmed Type Aspirin EC [Ecotrin Low Dose] 81 mg PO DAILY 11/28/21 03/19/24 History amLODIPine [Norvasc] 2.5 mg PO DAILY 11/28/21 03/19/24 History lisinopriL [Zestril] 10 mg PO DAILY 11/28/21 03/19/24 History Balance And Nature Vitamins 3 tab PO DAILY 09/08/23 03/19/24 History amLODIPine [Norvasc] 5 mg PO DAILY 09/08/23 03/19/24 History Allergies Allergy/AdvReac Type Severity Reaction Status Date / Time No Known Allergies Allergy Verified 03/19/24 15:58 Physical Exam Vitals: Vital Signs Temp Pulse Pulse Resp BP BP Pulse Ox 03/20/24 08:00 99.3 F 74 17 145/70 92 L 03/20/24 06:00 67 16 127/72 94 L 03/20/24 04:00 68 18 137/67 96 03/20/24 02:00 70 18 123/64 94 L 03/20/24 00:00 71 18 123/67 96 03/19/24 22:00 84 18 127/72 97 03/19/24 20:00 73 18 121/65 96 03/19/24 19:21 96 03/19/24 19:20 86 L 03/19/24 17:54 75 20 131/69 92 L 03/19/24 17:00 90 20 140/87 98 03/19/24 16:00 90 20 147/89 98 03/19/24 15:00 96 20 161/87 94 L 03/19/24 14:45 75 20 145/78 98 GENERAL DESCRIPTION: Elderly male up in the room, no distress. No tachypnea or accessory muscle of respiration use. HEENT: Shows Pallor , no scleral icterus. Oral mucous membrane is dry. NECK: Trachea central, no thyromegaly. LUNGS: Unlabored breathing. Clear to auscultation anteriorly. No wheeze or crackle. HEART: S1, S2, regular rate and rhythm. No loud murmur ABDOMEN: Soft, no tenderness , guarding or rigidity, no organomegaly EXTREMITIES: No edema of feet. SKIN: No rash, no masses palpable. NEUROLOGICAL: The patient is awake, alert, oriented x3, mood and affect normal. Results CBC & Chem 7: 03/21/24 03:09 03/20/24 04:10 Labs: Abnormal Lab Results - Last 24 Hours (Table) 03/19/24 03/19/24 03/19/24 Range/Units 11:20 11:20 14:35 WBC 17.8 H (3.8-10.6) k/uL RBC (4.40-5.60) X 10*6/uL Hgb (13.0-17.0) g/dL Hct (39.6-50.0) % Immature Gran # (0.00-0.04) X 10*3/uL Neutrophils # 14.1 H (1.3-7.7) k/uL Monocytes # 1.2 H (0-1.0) k/uL Anion Gap (4.00-12.00) mmol/L BUN 25 H (9-20) mg/dL Creatinine 1.69 H (0.66-1.25) mg/dL Est GFR (CKD-EPI) (>=60) BUN/Creatinine Ratio (12.00-20.00) Ratio Glucose 106 H (74-99) mg/dL Urine Protein 1+ H (Negative) Urine Ketones 1+ H (Negative) Ur Leukocyte Esterase Small H (Negative) Urine WBC 11 H (0-5) /hpf Urine Mucus Rare H (None) /hpf 03/20/24 03/20/24 Range/Units 04:10 04:10 WBC 14.85 H (3.8-10.6) k/uL RBC 4.20 L (4.40-5.60) X 10*6/uL Hgb 12.2 L (13.0-17.0) g/dL Hct 36.1 L (39.6-50.0) % Immature Gran # 0.12 H (0.00-0.04) X 10*3/uL Neutrophils # 11.70 H (1.3-7.7) k/uL Monocytes # 1.24 H (0-1.0) k/uL Anion Gap 12.20 H (4.00-12.00) mmol/L BUN (9-20) mg/dL Creatinine (0.66-1.25) mg/dL Est GFR (CKD-EPI) 46 L (>=60) BUN/Creatinine Ratio 11.73 L (12.00-20.00) Ratio Glucose 115 H (74-99) mg/dL Urine Protein (Negative) Urine Ketones (Negative) Ur Leukocyte Esterase (Negative) Urine WBC (0-5) /hpf Urine Mucus (None) /hpf Assessment and Plan (1) Pyelonephritis Current Visit: Yes Status: Acute Code(s): N12 - TUBULO-INTERSTITIAL NEPHRITIS, NOT SPCF ACUTE OR CHRONIC SNOMED Code(s): 81981148 Plan: 1patient presented to hospital with abdominal pain in this patient who did have constipation CT abdominal pelvis did not show evidence of diverticulitis or colitis however did show some left-sided abdominal kidney with the kidney stone and concerning for mild to moderate hydronephrosis concerning for complicated UTI/pyelonephritis likely from enteric gram-negative pathogen. 2patient is appropriately covered with cefepime 2 g every 8 hours to continue while waiting for the culture to finalize. We will follow on clinical condition and cultures to further adjust medication if needed Thank you for this consultation we will follow the patient along with you Dictation was produced using [employer] dictation software. please excuse any grammatical, word or spelling errors. Time with Patient: Greater than 30
[2024-03-21] MEDS: CEFEPIME 2 GM in SODIUM CHLORIDE 0.9% 100 ML IVPB SCH (19:45)
[2024-03-22] MEDS: ACETAMINOPHEN TAB 325 MG TAB PO PRN (00:16)
[2024-03-22] MEDS: KETOROLAC 15 MG/ML 1 ML VIAL IVP PRN (01:01)
--- NOTE | 2024-03-22 06:35 | P.PN ---
Subjective Progress Note Date: 03/21/24 History of present illness; patient is a 83-year-old gentleman with past medical history significant for hypertension who presented to the ER because abdominal pain. Patient stated he was all right 5 days back when he started developing abdominal pain that was located in the lower quadrants, cramping in nature, nonradiating, associated with reduced bowel movements. Patient was denying any nausea or vomiting. Patient was complaining of constipation. There was no complaint of fever or chills. There was no complaint of chest pain or shortness of breath. Because of this abdominal pain, patient presented to the urgent care where they did abdominal x-ray that showed constipation. Patient was referred to the ER. 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 Patient admitted to internal medicine service 03/21/2024 Patient is seen in follow-up being followed by urology along with infectious disease maintained on antibiotics. Patient continues to have low-grade temps reports some flank pain and awaiting urine cultures with preliminary showing gram-negative bacilli. Blood cultures are pending as well. Patient currently afebrile with no reports of chest pain or shortness of breath. Patient appears to have generalized weakness and reports has been voiding. Patient denies abdominal discomfort at this time and reports to tolerating some diet. Not much of an appetite although patient denies any nausea or vomiting. Review of systems: Constitutional: No reports of fatigue, fever, or chills Cardiovascular: No reports of chest pain or palpitations Respiratory: No reports of shortness of breath or cough GI: No reports of nausea, vomiting, or diarrhea : No reports of dysuria or retention, reports of flank pain Neurovascular: No reports of weakness or numbness All medications have been reviewed The rest of the 14-point review of systems is negative. PHYSICAL EXAMINATION: GENERAL: The patient is alert and oriented x3, elderly appearing, thin built. Well developed HEENT: Pupils are round and equally reacting to light. EOMI. No scleral icterus. No conjunctival pallor. Normocephalic, atraumatic. No pharyngeal erythema. No thyromegaly. CARDIOVASCULAR: S1 and S2 present. No murmurs, rubs, or gallops. PULMONARY: Chest is clear to auscultation, no wheezing or crackles. ABDOMEN: Soft, nontender, nondistended, normoactive bowel sounds. No palpable organomegaly. MUSCULOSKELETAL: No joint swelling or deformity. EXTREMITIES: No cyanosis, clubbing, or pedal edema. NEUROLOGICAL: Gross neurological examination did not reveal any focal deficits. SKIN: No rashes. 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 White count is trending down although patient continues to have low-grade temps Currently awaiting urine and blood cultures and preliminary urine cultures are positive awaiting finalized cultures to determine appropriate antibiotics Encouraged increase activity as tolerated Will follow-up on repeat labs and replace electrolytes per protocol Continue supportive care Due to multiple complex medical issues, overall prognosis is guarded The impression and plan of care has been dictated by Maddy Landaverde, Nurse Practitioner as directed. Dr. Alok MD I have performed a history and examination and MDM of this patient, discussed the same with the dictator, and agree with the dictator's assessment and plan as written ,documented as a scribe. Based on total visit time, I have performed more than 50% of the visit. Objective - Vital Signs Vital signs: Vital Signs Temp 98.6 F 03/21/24 07:00 Pulse 75 03/21/24 07:00 Resp 18 03/21/24 07:00 BP 160/91 03/21/24 07:00 Pulse Ox 95 03/21/24 07:00 FiO2 Intake & Output 03/20/24 03/21/24 03/21/24 18:59 06:59 18:59 Intake Total 120 250 Balance 120 250 Weight 83.915 kg Intake: Oral 120 250 Other: # Voids 2 - Labs CBC & Chem 7: 03/21/24 03:09 03/20/24 04:10 Labs: Abnormal Lab Results - Last 24 Hours (Table) 03/20/24 03/20/24 03/21/24 Range/Units 04:10 04:10 03:09 WBC 12.54 H (4.50-10.00) X 10*3/uL RBC 3.89 L (4.40-5.60) X 10*6/uL Hgb 11.7 L (13.0-17.0) g/dL Hct 34.7 L (39.6-50.0) % Immature Gran # 0.11 H (0.00-0.04) X 10*3/uL Neutrophils # 9.53 H (1.80-7.70) X 10*3/uL ESR 42 H (0-20) mm/Hr C-Reactive Protein 14.90 H (0.00-0.80) mg/dL Microbiology - Last 24 Hours (Table) 03/19/24 14:35 Blood Culture - Preliminary Blood 03/19/24 14:35 Urine Culture - Preliminary Urine,Voided
[2024-03-22 07:10] LABS: Basophils % (A) 0 %; Eosinophils # (A) 0.1 k/uL (0-0.7); Eosinophils % (A) 1 %; HCT 38.9 % (39.0-53.0); HGB 12.8 gm/dL (13.0-17.5); Lymphocytes # (A) 1.4 k/uL (1.0-4.8); Lymphocytes % (A) 10 %; MCH 29.5 pg (25.0-35.0); MCHC 32.8 g/dL (31.0-37.0); MCV 89.9 fL (80.0-100.0); Mean Platelet Volume 7.4; Monocytes # (A) 0.3 k/uL (0-1.0); Monocytes % (A) 2 %; Neutrophils # (A) 12.9 k/uL (1.3-7.7); Neutrophils % (A) 87 %; Platelet Count 287 k/uL (150-450); RBC 4.33 m/uL (4.30-5.90); RDW 13.1 % (11.5-15.5); WBC 14.9 k/uL (3.8-10.6)
[2024-03-22 07:27] LABS: ALT 57 U/L (4-49); AST 45 U/L (17-59); African American GFR (CKD) 53 (>60 ml/min/1.73 sqM); Albumin 3.5 g/dL (3.5-5.0); Albumin/Globulin Ratio 1.2; Alkaline Phosphatase 107 U/L (38-126); Anion Gap 7 mmol/L; Blood Urea Nitrogen 15 mg/dL (9-20); Calcium 8.5 mg/dL (8.4-10.2); Carbon Dioxide 25 mmol/L (22-30); Chloride 109 mmol/L (98-107); Globulin 2.9 g/dL; Glucose 105 mg/dL (74-99); Magnesium 2.1 mg/dL (1.6-2.3); Non-African American GFR(CKD) 46 (>60 ml/min/1.73 sqM); Potassium 3.8 mmol/L (3.5-5.1); Sodium 141 mmol/L (137-145); Total Bilirubin 1.2 mg/dL (0.2-1.3); Total Protein 6.4 g/dL (6.3-8.2)
--- NOTE | 2024-03-22 08:54 | P.PN ---
Subjective Progress Note Date: 03/21/24 Principal diagnosis: Reason for follow-up is complicated UTI Patient is 83-year-old male with a past medical history significant for hypertension osteoarthritis kidney stone former smoker patient was brought into the hospital for evaluation of abdominal pain that apparently has been going on for the last 5 to 6 days patient did have a CT abdominal pelvis with Recent left renal collecting system concerning for moderate hydronephrosis and pyelonephritis prompted this consultation. On today's evaluation that is 03/21/2024, patient has been afebrile, patient is breathing comfortably and is currently on room air, patient denies having any significant cough no chest pain, patient denies nausea vomiting or diarrhea and no abdominal pain. Patient white count is down to 12.54 urine is currently growing gram-negative Objective - Vital Signs Vital signs: Vital Signs Temp 98.6 F 03/21/24 07:00 Pulse 75 03/21/24 07:00 Resp 18 03/21/24 07:00 BP 160/91 03/21/24 07:00 Pulse Ox 95 03/21/24 07:00 FiO2 Intake & Output 03/20/24 03/21/24 03/21/24 18:59 06:59 18:59 Intake Total 120 250 Balance 120 250 Weight 83.915 kg Intake: Oral 120 250 Other: # Voids 2 - Exam GENERAL DESCRIPTION: An elderly male up in bed in no distress RESPIRATORY SYSTEM: Unlabored breathing , decreased breath sounds at bases HEART: S1 S2 regular rate and rhythm , ABDOMEN: Soft , no tenderness EXTREMITIES: No edema feet - Labs CBC & Chem 7: 03/22/24 06:34 03/22/24 06:34 Labs: Abnormal Lab Results - Last 24 Hours (Table) 03/21/24 Range/Units 03:09 WBC 12.54 H (4.50-10.00) X 10*3/uL RBC 3.89 L (4.40-5.60) X 10*6/uL Hgb 11.7 L (13.0-17.0) g/dL Hct 34.7 L (39.6-50.0) % Immature Gran # 0.11 H (0.00-0.04) X 10*3/uL Neutrophils # 9.53 H (1.80-7.70) X 10*3/uL Microbiology - Last 24 Hours (Table) 03/19/24 14:35 Blood Culture - Preliminary Blood 03/19/24 14:35 Urine Culture - Preliminary Urine,Voided Assessment and Plan (1) Pyelonephritis Current Visit: Yes Status: Acute Code(s): N12 - TUBULO-INTERSTITIAL NEPHRITIS, NOT SPCF ACUTE OR CHRONIC SNOMED Code(s): 01003118 Plan: 1patient presented to hospital with abdominal pain in this patient who did have constipation CT abdominal pelvis did not show evidence of diverticulitis or colitis however did show some left-sided abdominal kidney with the kidney stone and concerning for mild to moderate hydronephrosis concerning for complicated UTI/pyelonephritis likely from enteric gram-negative pathogen. 2patient is afebrile white count is trending down continue with the cefepime await further recommendations from urology regarding the left-sided h ydronephrosis Son at the bedside question answered Dictation was produced using [employer] dictation software. please excuse any grammatical, word or spelling errors. Time with Patient: Less than 30
--- NOTE | 2024-03-22 12:49 | P.PN ---
Subjective Progress Note Date: 03/22/24 Principal diagnosis: UTI, left hydronephrosis secondary to left UPJ calculus The patient continues to have a low-grade fever, and his WBC count remains elevated. Urine culture has confirmed the presence of a UTI (E. coli, Klebsiella pneumoniae). Review of the CT scan shows evidence of left hydronephrosis due to an apparent 9 mm left UPJ calculus. This is somewhat difficult to interpret given the fact the patient has a horseshoe kidney. Objective - Vital Signs Vital signs: Vital Signs Temp 99.5 F 03/22/24 08:26 Pulse 68 03/22/24 07:08 Resp 19 03/22/24 07:08 BP 158/68 03/22/24 07:08 Pulse Ox 92 L 03/22/24 08:26 FiO2 Intake & Output 03/21/24 03/22/24 03/22/24 18:59 06:59 18:59 Intake Total 250 1080 Balance 250 1080 Intake: Oral 250 1080 Other: Voiding Method Toilet Toilet # Voids 2 6 - Constitutional General appearance: Present: average body habitus, cooperative, no acute distress - Psychiatric Psychiatric: Present: A&O x's 3 - Labs CBC & Chem 7: 03/22/24 06:34 03/22/24 06:34 Labs: Abnormal Lab Results - Last 24 Hours (Table) 03/22/24 03/22/24 Range/Units 06:34 06:34 WBC 14.9 H (3.8-10.6) k/uL Hgb 12.8 L (13.0-17.5) gm/dL Hct 38.9 L (39.0-53.0) % Neutrophils # 12.9 H (1.3-7.7) k/uL Chloride 109 H (98-107) mmol/L Creatinine 1.42 H (0.66-1.25) mg/dL Glucose 105 H (74-99) mg/dL ALT 57 H (4-49) U/L Microbiology - Last 24 Hours (Table) 03/19/24 14:35 Blood Culture - Preliminary Blood 03/19/24 14:35 Urine Culture - Final Urine,Voided Escherichia coli Klebsiella pneumoniae Assessment and Plan (1) Acute pyelonephritis Current Visit: Yes Status: Acute Code(s): N10 - ACUTE PYELONEPHRITIS SNOMED Code(s): 05090865 (2) Hydronephrosis with renal and ureteral calculous obstruction Current Visit: Yes Status: Acute Code(s): N13.2 - HYDRONEPHROSIS WITH RENAL AND URETERAL CALCULOUS OBSTRUCTION SNOMED Code(s): 153977811 Plan: The patient is currently receiving Rocephin, to which the E. coli and Klebsiella are both sensitive. I have advised him to undergo cystoscopy with left ureteral stent insertion later today. The rationale for this is to relieve obstruction to improve the likelihood of successfully treating the UTI. He could then undergo a secondary procedure, which would likely be left ureteroscopy with laser lithotripsy to treat the UPJ calculus and renal calculi.
--- NOTE | 2024-03-22 13:55 | P.PN ---
Subjective Progress Note Date: 03/22/24 Principal diagnosis: Reason for follow-up is complicated UTI Patient is 83-year-old male with a past medical history significant for hypertension osteoarthritis kidney stone former smoker patient was brought into the hospital for evaluation of abdominal pain that apparently has been going on for the last 5 to 6 days patient did have a CT abdominal pelvis with Recent left renal collecting system concerning for moderate hydronephrosis and pyelonephritis prompted this consultation. On today's evaluation that is 03/22/2024, Patient did have a low-grade fever 100.2 F this morning i, patient complaining of some cough mostly dry no nausea no vomiting abdominal discomfort is currently controlled and denies having any diarrhea. Patient white count is up to 14.9 creatinine is 1.42 urine with E. coli Klebsiella both sensitive to ceftriaxone Objective - Vital Signs Vital signs: Vital Signs Temp 99.5 F 03/22/24 08:26 Pulse 68 03/22/24 07:08 Resp 19 03/22/24 07:08 BP 158/68 03/22/24 07:08 Pulse Ox 92 L 03/22/24 08:26 FiO2 Intake & Output 03/21/24 03/22/24 03/22/24 18:59 06:59 18:59 Intake Total 250 1080 Balance 250 1080 Intake: Oral 250 1080 Other: Voiding Method Toilet Toilet # Voids 2 6 - Exam GENERAL DESCRIPTION: An elderly male up in bed in no distress RESPIRATORY SYSTEM: Unlabored breathing , decreased breath sounds at bases HEART: S1 S2 regular rate and rhythm , ABDOMEN: Soft , no tenderness EXTREMITIES: No edema feet - Labs CBC & Chem 7: 03/22/24 06:34 03/22/24 06:34 Labs: Abnormal Lab Results - Last 24 Hours (Table) 03/22/24 03/22/24 Range/Units 06:34 06:34 WBC 14.9 H (3.8-10.6) k/uL Hgb 12.8 L (13.0-17.5) gm/dL Hct 38.9 L (39.0-53.0) % Neutrophils # 12.9 H (1.3-7.7) k/uL Chloride 109 H (98-107) mmol/L Creatinine 1.42 H (0.66-1.25) mg/dL Glucose 105 H (74-99) mg/dL ALT 57 H (4-49) U/L Microbiology - Last 24 Hours (Table) 03/19/24 14:35 Blood Culture - Preliminary Blood 03/19/24 14:35 Urine Culture - Final Urine,Voided Escherichia coli Klebsiella pneumoniae Assessment and Plan (1) Pyelonephritis Current Visit: Yes Status: Acute Code(s): N12 - TUBULO-INTERSTITIAL NEPHRITIS, NOT SPCF ACUTE OR CHRONIC SNOMED Code(s): 61320442 Plan: 1patient presented to hospital with abdominal pain in this patient who did have constipation CT abdominal pelvis did not show evidence of diverticulitis or colitis however did show some left-sided abdominal kidney with the kidney stone and concerning for mild to moderate hydronephrosis concerning for complicated UTI/pyelonephritis likely from enteric gram-negative pathogen. 2patient did have a low-grade fever white count slightly up currently waiting for cystoscopy and left-sided ureteral stent placement left-sided hydronephrosis 3patient urine has been finalized with Klebsiella and E. coli both of them were sensitive to ceftriaxone which will be continued while inpatient Dictation was produced using [employer] dictation software. please excuse any grammatical, word or spelling errors. Time with Patient: Less than 30
[2024-03-22] MEDS: IV FLUID CONTINUATION 1,000 ML IV ONE (15:50)
[2024-03-22] MEDS: DEXAMETHASONE SOD PHOSPHATE 4 MG/ML 1 ML VIAL IVP STA (16:09)
[2024-03-22] MEDS: ONDANSETRON 4 MG/2 ML VIAL IVP PRN (16:09)
[2024-03-22] MEDS ORDERED: PROPOFOL 10 MG/ML 20 ML VIAL IV ONE (16:12)
[2024-03-22] MEDS ORDERED: MIDAZOLAM 2 MG/2 ML VIAL ONE (16:12)
[2024-03-22] MEDS ORDERED: fentaNYL (PF) 50 MCG/ML 2 ML AMP ONE (16:12)
[2024-03-22] MEDS ORDERED: LIDOCAINE 1% INJ 10MG/ML (20 ML MDV) ONE (16:12)
--- NOTE | 2024-03-22 17:05 | FL ---
Fluoroscopy INDICATION: Pain, left retrograde cystogram with stent placement, or Horseshoe kidney FINDINGS: Fluoroscopy time: 17.2 seconds. Total dose area product (DAP) in uGy*m?, mGy*cm? (or similar): 0.32460 Images obtained: 7. There is dilatation of the left renal collecting system IMPRESSION: 1. Documentation of fluoroscopy. [facility], Workstation: [facility], 03/22/2024 5:03 PM
--- NOTE | 2024-03-22 17:24 | P.OP ---
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 Urine culture has confirmed the presence of a UTI (E. coli, Klebsiella pneumoniae). Review of the CT scan shows evidence of left hydronephrosis due to an apparent 9 mm left UPJ calculus. He has been treated with IV antibiotics but his fever and leukocytosis have persisted. He has been advised to undergo left ureteral stent insertion and comes for this reason. Operative Findings: Moderate to severe left hydronephrosis. Patient has significant intestinal gas, and a calculus was not seen on fluoroscopy. However, the level of obstruction appeared to be at the UPJ. Description of Procedure: The patient was taken to the operating room and placed in the dorsolithotomy position, with legs supported in Fabiano stirrups. The external genitalia was prepped and draped sterilely. The 30 lens was used to introduce the 22-Slovenian Stortz cystoscopic sheath through the urethra and into the bladder under direct vision. The prostatic urethra was unremarkable. The bladder was examined in its entirety. Both ureteral orifices were of normal anatomic location and configuration, and clear urine effluxed from both. Several small calculi were seen and drained from the bladder. No tumors were seen. Using a 10 Slovenian cone-tip catheter, a left retrograde pyelogram was performed. The ureter was seen on fluoroscopy. The ureter was normal in course and c aliber. Significant intestinal gas was noted, such that calculi were not seen on fluoroscopy. However, the left renal pelvis was noted to be markedly dilated. A 0.035 inch Glidewire was passed through the cystoscope. The left ureteral orifice was cannulated, and the Glidewire was slowly advanced up to the renal pelvis. A 22 cm, 6-Slovenian double-J ureteral stent was placed over the wire. Proper stent positioning was verified fluoroscopically and endoscopically. The bladder was emptied and the cystoscope removed. The patient tolerated the procedure well and was taken to the recovery room in stable condition.
--- NOTE | 2024-03-22 22:39 | P.PN ---
Subjective Progress Note Date: 03/22/24 History of present illness; patient is a 83-year-old gentleman with past medical history significant for hypertension who presented to the ER because abdominal pain. Patient stated he was all right 5 days back when he started developing abdominal pain that was located in the lower quadrants, cramping in nature, nonradiating, associated with reduced bowel movements. Patient was denying any nausea or vomiting. Patient was complaining of constipation. There was no complaint of fever or chills. There was no complaint of chest pain or shortness of breath. Because of this abdominal pain, patient presented to the urgent care where they did abdominal x-ray that showed constipation. Patient was referred to the ER. 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 Patient admitted to internal medicine service 03/21/2024 Patient is seen in follow-up being followed by urology along with infectious disease maintained on antibiotics. Patient continues to have low-grade temps reports some flank pain and awaiting urine cultures with preliminary showing gram-negative bacilli. Blood cultures are pending as well. Patient currently afebrile with no reports of chest pain or shortness of breath. Patient appears to have generalized weakness and reports has been voiding. Patient denies abdominal discomfort at this time and reports to tolerating some diet. Not much of an appetite although patient denies any nausea or vomiting. 03/22/2024 Patient is seen in follow-up today scheduled to undergo cystoscopy with urology as patient continues to have elevated white blood count which has worsened today and continued low-grade temps throughout the night. Patient is maintained on antibiotics and has been transitioned to IV ceftriaxone with infectious disease following and urine culture showing E. coli with Klebsiella. Patient reports is voiding with no pain and denies any CVA pain or tenderness. Patient to remain n.p.o. and resume diet once cleared by surgery. Will await urology report. Repeat labs ordered for a.m. Review of systems: Constitutional: No reports of fatigue, reports low-grade fever, or chills Cardiovascular: No reports of chest pain or palpitations Respiratory: No reports of shortness of breath or cough GI: No reports of nausea, vomiting, or diarrhea : No reports of dysuria or retention, no reports of flank pain Neurovascular: No reports of weakness or numbness All medications have been reviewed The rest of the 14-point review of systems is negative. PHYSICAL EXAMINATION: GENERAL: The patient is alert and oriented x3, elderly appearing, thin built. Well developed HEENT: Pupils are round and equally reacting to light. EOMI. No scleral icterus. No conjunctival pallor. Normocephalic, atraumatic. No pharyngeal erythema. No thyromegaly. CARDIOVASCULAR: S1 and S2 present. No murmurs, rubs, or gallops. PULMONARY: Chest is clear to auscultation, no wheezing or crackles. ABDOMEN: Soft, nontender, nondistended, normoactive bowel sounds. No palpable organomegaly. MUSCULOSKELETAL: No joint swelling or deformity. EXTREMITIES: No cyanosis, clubbing, or pedal edema. NEUROLOGICAL: Gross neurological examination did not reveal any focal deficits. SKIN: No rashes. Assessment: Acute pyelonephritis with urine culture showing E. coli and Klebsiella Horseshoe kidney with mild to moderate left-sided hydronephrosis Fevers and leukocytosis, secondary to possible obstruction with left-sided hyd ronephrosis, status post cystoscopy and stent placement at the UPJ joint History of osteoarthritis Hypertension History of kidney stones GI prophylaxis DVT prophylaxis Full code plan: Continue on IV antibiotics with infectious disease and urology following. Patient underwent cystoscopy status post ureteral stent placement on the left. Urine cultures finalized showing E. coli and Klebsiella and has been transitioned to ceftriaxone. Sensitivities noted on urine culture. Per infectious disease patient will likely transition to oral antibiotics on discharge. Patient white count persists and patient did have low-grade temps. Will follow-up with repeat labs and monitor for any further fevers Continue gentle hydration and will replace electrolytes per protocol Encouraged increase activity as tolerated Continue supportive care Due to multiple complex medical issues, overall prognosis is guarded Will discuss further with urology and infectious disease regarding discharge planning The impression and plan of care has been dictated by Maddy Landaverde, Nurse Practitioner as directed. Dr. Alok MD I have performed a history and examination and MDM of this patient, discussed the same with the dictator, and agree with the dictator's assessment and plan as written ,documented as a scribe. Based on total visit time, I have performed more than 50% of the visit. Objective - Vital Signs Vital signs: Vital Signs Temp 99.8 F H 03/22/24 16:51 Pulse 61 03/22/24 20:39 Resp 18 03/22/24 17:19 BP 121/61 03/22/24 20:39 Pulse Ox 92 L 03/22/24 20:39 FiO2 Intake & Output 03/22/24 03/22/24 03/23/24 06:59 18:59 06:59 Intake Total 1080 700 Output Total 75 Balance 1080 625 Intake: IV 700 Oral 1080 Output: Urine 75 Estimated Blood Loss 0 Other: Voiding Method Toilet Toilet # Voids 6 2 - Labs CBC & Chem 7: 03/22/24 06:34 03/22/24 06:34 Labs: Abnormal Lab Results - Last 24 Hours (Table) 03/22/24 03/22/24 Range/Units 06:34 06:34 WBC 14.9 H (3.8-10.6) k/uL Hgb 12.8 L (13.0-17.5) gm/dL Hct 38.9 L (39.0-53.0) % Neutrophils # 12.9 H (1.3-7.7) k/uL Chloride 109 H (98-107) mmol/L Creatinine 1.42 H (0.66-1.25) mg/dL Glucose 105 H (74-99) mg/dL ALT 57 H (4-49) U/L Microbiology - Last 24 Hours (Table) 03/19/24 14:35 Blood Culture - Preliminary Blood 03/19/24 14:35 Urine Culture - Final Urine,Voided Escherichia coli Klebsiella pneumoniae
[2024-03-23] MEDS: PANTOPRAZOLE 40 MG TABLET PO SCH (06:57)
[2024-03-23] MEDS: SENNOSIDES 8.6 MG TAB PO SCH (07:52)
[2024-03-23 08:25] LABS: Basophils # (A) 0.02 X 10*3/uL (0.00-0.10); Basophils % (A) 0.2 %; Eosinophils # (A) 0 X 10*3/uL (0.04-0.35); Eosinophils % (A) 0 %; HCT 35.1 % (39.6-50.0); HGB 11.7 g/dL (13.0-17.0); Lymphocytes # (A) 1.11 X 10*3/uL (0.90-5.00); Lymphocytes % (A) 9.8 %; MCH 29.8 pg (27.0-32.0); MCHC 33.3 g/dL (32.0-37.0); MCV 89.5 FL (80.0-97.0); Mean Platelet Volume 10.6 FL (9.5-12.2); Monocytes # (A) 0.56 X 10*3/uL (0.20-1.00); NRBC Per 100 WBC 0 X 10*3/uL (0.00-0.01); Neutrophils % (A) 84.3 %; Platelet Count 265 X 10*3/uL (140-440); RBC 3.92 X 10*6/uL (4.40-5.60); RDW 13.5 % (11.5-14.5); WBC 11.27 X 10*3/uL (4.50-10.00)
[2024-03-23 08:51] LABS: BUN/Creat Ratio 12.62 Ratio (12.00-20.00); Blood Urea Nitrogen 16.4 mg/dL (9.0-27.0); Carbon Dioxide 21.6 mmol/L (21.6-31.8); Chloride 108 mmol/L (96-109); Glucose 109 mg/dL (70-110); Sodium 142 mmol/L (135-145)
--- NOTE | 2024-03-23 10:52 | P.PN ---
Subjective Progress Note Date: 03/23/24 Principal diagnosis: UTI, left hydronephrosis secondary to left UPJ calculus The patient has been found to have a UTI (E. coli, Klebsiella pneumoniae). Review of the CT scan showed evidence of left hydronephrosis due to an apparent 9 mm left UPJ calculus. This was somewhat difficult to interpret given the fact the patient has a horseshoe kidney. He underwent insertion of a left ureteral stent yesterday and states that his pain has now resolved. He has been afebrile since that time. Objective - Vital Signs Vital signs: Vital Signs Temp 99 F 03/23/24 07:46 Pulse 69 03/23/24 07:53 Resp 18 03/23/24 07:53 BP 144/70 03/23/24 07:46 Pulse Ox 90 L 03/23/24 07:46 FiO2 Intake & Output 03/22/24 03/23/24 03/23/24 18:59 06:59 18:59 Intake Total 700 Output Total 75 200 Balance 625 -200 Intake: IV 700 Output: Urine 75 200 Estimated Blood Loss 0 Other: Voiding Method Toilet Urinal Urinal # Voids 2 - Constitutional General appearance: Present: average body habitus, cooperative, no acute distress - Psychiatric Psychiatric: Present: A&O x's 3 - Labs CBC & Chem 7: 03/23/24 02:13 03/23/24 02:13 Labs: Abnormal Lab Results - Last 24 Hours (Table) 03/23/24 03/23/24 Range/Units 02:13 02:13 WBC 11.27 H (4.50-10.00) X 10*3/uL RBC 3.92 L (4.40-5.60) X 10*6/uL Hgb 11.7 L (13.0-17.0) g/dL Hct 35.1 L (39.6-50.0) % Immature Gran # 0.08 H (0.00-0.04) X 10*3/uL Neutrophils # 9.50 H (1.80-7.70) X 10*3/uL Eosinophils # 0 L (0.04-0.35) X 10*3/uL Anion Gap 12.40 H (4.00-12.00) mmol/L Est GFR (CKD-EPI) 55 L (>=60) Calcium 8.0 L (8.7-10.3) mg/dL Microbiology - Last 24 Hours (Table) 03/19/24 14:35 Blood Culture - Preliminary Blood Assessment and Plan (1) Acute pyelonephritis Current Visit: Yes Status: Acute Code(s): N10 - ACUTE PYELONEPHRITIS S NOMED Code(s): 66848659 (2) Hydronephrosis with renal and ureteral calculous obstruction Current Visit: Yes Status: Acute Code(s): N13.2 - HYDRONEPHROSIS WITH RENAL AND URETERAL CALCULOUS OBSTRUCTION SNOMED Code(s): 097346205 Plan: The patient is currently receiving Rocephin, to which the E. coli and Klebsiella are both sensitive. He has undergone left ureteral stent insertion and could likely be discharged home on oral antibiotics soon. He will follow-up with Dr. Almeida in 1 week, and arrangements will then be made for him to undergo left ureteroscopy with laser lithotripsy to treat the UPJ calculus and renal calculi.
--- NOTE | 2024-03-23 11:04 | XR ---
EXAMINATION TYPE: XR chest 1V portable DATE OF EXAM: 03/23/2024 10:29 AM COMPARISON: Chest radiographs from 12/06/2017. CLINICAL INDICATION: Male, 83 years old with history of shortness of breath; TECHNIQUE: XR chest 1V portable Frontal view of the chest. FINDINGS: Lungs/Pleura: There is no evidence of pleural effusion, focal consolidation, or pneumothorax. Pulmonary vascularity: Unremarkable. Heart/mediastinum: Cardiomediastinal silhouette is unremarkable. Hiatal hernia projects over the lowe r mediastinum. Musculoskeletal: No acute osseous pathology. Other findings: None IMPRESSION: 1. No acute cardiopulmonary disease/process. 2. Large hiatal hernia. [facility], , 03/23/2024 11:02 AM
[2024-03-23 14:03] VITALS: BP 149/76; PULSE 95; RESP 20; TEMP 98.4
--- NOTE | 2024-03-24 13:10 | P.PN ---
Subjective Progress Note Date: 03/23/24 Principal diagnosis: Reason for follow-up is complicated UTI Patient is 83-year-old male with a past medical history significant for hypertension osteoarthritis kidney stone former smoker patient was brought into the hospital for evaluation of abdominal pain that apparently has been going on for the last 5 to 6 days patient did have a CT abdominal pelvis with Recent left renal collecting system concerning for moderate hydronephrosis and pyelonephritis prompted this consultation. On today's evaluation that is 03/23/2024,the patient denies any fever or any chills, patient is breathing comfortably on room air, the patient denies chest pain shortness of breath and no significant cough, patient denies abdominal pain, no nausea vomiting or diarrhea. Feeling better wants to go home. Patient white count is down to 11.27, creatinine is 1.3 urine with E. coli and K lebsiella Objective - Vital Signs Vital signs: Vital Signs Temp 99 F 03/23/24 07:46 Pulse 69 03/23/24 07:53 Resp 18 03/23/24 07:53 BP 144/70 03/23/24 07:46 Pulse Ox 90 L 03/23/24 07:46 FiO2 Intake & Output 03/22/24 03/23/24 03/23/24 18:59 06:59 18:59 Intake Total 700 Output Total 75 200 Balance 625 -200 Intake: IV 700 Output: Urine 75 200 Estimated Blood Loss 0 Other: Voiding Method Toilet Urinal Urinal # Voids 2 - Exam GENERAL DESCRIPTION: An elderly male up in bed in no distress RESPIRATORY SYSTEM: Unlabored breathing , decreased breath sounds at bases HEART: S1 S2 regular rate and rhythm , ABDOMEN: Soft , no tenderness EXTREMITIES: No edema feet - Labs CBC & Chem 7: 03/23/24 02:13 03/23/24 02:13 Labs: Abnormal Lab Results - Last 24 Hours (Table) 03/23/24 03/23/24 Range/Units 02:13 02:13 WBC 11.27 H (4.50-10.00) X 10*3/uL RBC 3.92 L (4.40-5.60) X 10*6/uL Hgb 11.7 L (13.0-17.0) g/dL Hct 35.1 L (39.6-50.0) % Immature Gran # 0.08 H (0.00-0.04) X 10*3/uL Neutrophils # 9.50 H (1.80-7.70) X 10*3/uL Eosinophils # 0 L (0.04-0.35) X 10*3/uL Anion Gap 12.40 H (4.00-12.00) mmol/L Est GFR (CKD-EPI) 55 L (>=60) Calcium 8.0 L (8.7-10.3) mg/dL Microbiology - Last 24 Hours (Table) 03/19/24 14:35 Blood Culture - Preliminary Blood Assessment and Plan (1) Pyelonephritis Status: Acute Code(s): N12 - TUBULO-INTERSTITIAL NEPHRITIS, NOT SPCF ACUTE OR CHRONIC SNOMED Code(s): 56235346 Plan: 1patient presented to hospital with abdominal pain in this patient who did have constipation CT abdominal pelvis did not show evidence of diverticulitis or colitis however did show some left-sided abdominal kidney with the kidney stone and concerning for mild to moderate hydronephrosis concerning for complicated UTI/pyelonephritis likely from enteric gram-negative pathogen. 2patient is status post cystoscopy and left-sided ureteral stent placement left-sided hydronephrosis 3patient did have resolution of his fever white count is trending down, urine has been finalized with Klebsiella and E. coli both of them were sensitive to ceftriaxone with a plan to finish therapy with oral Ceftin x 10 days discussed with the MOTOR ANALYST for admitting team working on discharge Dictation was produced using [employer] dictation software. please excuse any grammatical, word or spelling errors. Time with Patient: Less than 30
== END 2024-03-23 14:18 | disposition home or self-care (01) | DRG 660 ==
LOC: EC 10:30 → 4SSUR 15:26 → 6NMEDSUR 20:02 → 4SSUR 20:05
PROVIDERS: ADMIT Internal Medicine; ATTEND Internal Medicine
PROC: 0T778DZ Dilation of Left Ureter with Intraluminal Device, Via Natural or Artificial Opening Endoscopic (ICD-10-PCS; principal; 2024-03-22 10:30)
PROC: BT1F1ZZ Fluoroscopy of Left Kidney, Ureter and Bladder using Low Osmolar Contrast (ICD-10-PCS; 2024-03-22 10:30)
DX: N13.6 Pyonephrosis (principal); N20.2 Calculus of kidney with calculus of ureter; Z87.442 Personal history of urinary calculi; Q63.1 Lobulated, fused and horseshoe kidney; I10 Essential (primary) hypertension; B96.1 Klebsiella pneumoniae [K. pneumoniae] as the cause of diseases classified elsewhere; M19.90 Unspecified osteoarthritis, unspecified site; B96.20 Unspecified Escherichia coli [E. coli] as the cause of diseases classified elsewhere; K59.00 Constipation, unspecified; Z79.82 Long term (current) use of aspirin; Z79.899 Other long term (current) drug therapy; Z87.891 Personal history of nicotine dependence; Z87.19 Personal history of other diseases of the digestive system
CPT/HCPCS: 36415; 71045; 74176; 74420; 80048; 80053; 81001; 82150; 83605; 83690; 83735; 84145; 85025; 85652; 86140; 87040; 87077; 87086; 87186; 93005; 96361; 96365; 96366; 96375; 99285

== ENCOUNTER → 2024-04-08 | Outpatient (CLI) | payer MEDICARE ==
[2024-04-08 16:22] LABS: Blood Urea Nitrogen 12.1 mg/dL (9.0-27.0); Calcium 9.2 mg/dL (8.7-10.3); Carbon Dioxide 27.6 mmol/L (21.6-31.8); Chloride 107 mmol/L (96-109); Glucose 99 mg/dL (70-110); Potassium 4.3 mmol/L (3.5-5.5); Sodium 143 mmol/L (135-145)
[2024-04-08 16:34] LABS: Appearance,Urine Turbid (Clear); Bilirubin,Urine Negative (Negative); Blood,Urine Large (Negative); Color,Urine Dark Yellow (Yellow); Ketones,Urine Trace (Negative); Nitrite,Urine Positive (Negative); Specific Gravity,Urine 1.022 (1.001-1.030)
[2024-04-08 16:48] LABS: Bacteria,Urine 1+ (None Seen); Calcium Oxalate Crystals,Urine Present (None Seen)
[2024-04-08 17:58] LABS: Basophils # (A) 0.08 X 10*3/uL (0.00-0.10); Basophils % (A) 0.7 %; Eosinophils # (A) 0.28 X 10*3/uL (0.04-0.35); Eosinophils % (A) 2.5 %; HCT 36.4 % (39.6-50.0); HGB 12.7 g/dL (13.0-17.0); Lymphocytes # (A) 2.79 X 10*3/uL (0.90-5.00); Lymphocytes % (A) 25.1 %; MCH 30.2 pg (27.0-32.0); MCHC 34.9 g/dL (32.0-37.0); MCV 86.7 FL (80.0-97.0); Mean Platelet Volume 10.8 FL (9.5-12.2); Monocytes # (A) 0.87 X 10*3/uL (0.20-1.00); Monocytes % (A) 7.8 %; NRBC Per 100 WBC 0 X 10*3/uL (0.00-0.01); Platelet Count 308 X 10*3/uL (140-440); RDW 13.9 % (11.5-14.5); WBC 11.12 X 10*3/uL (4.50-10.00)
== END | disposition home or self-care (01) ==
LOC: LABPAT 09:48
PROVIDERS: ATTEND Urology
DX: Z01.818 Encounter for other preprocedural examination (principal); N20.1 Calculus of ureter
CPT/HCPCS: 80048; 81001; 85025; 87086

== ENCOUNTER 2024-04-19 06:53 | Day surgery (SDC) | payer MEDICARE ==
[2024-04-12 11:49] VITALS: BMI 25.8
--- NOTE | 2024-04-13 11:49 | P.HPIHPCON ---
History of Present Illness H&P Date: 04/13/24 Chief Complaint: Left ureteral stone This is a 83-year-old male with a history of a 9 mm left-sided proximal stone, status post stent insertion for septic stone on March 22. He presents today for definitive stone management. Option of left-sided ureteroscopy with holmium laser was discussed, aware of the risk which includes but not limited to bleeding, infection, injury to the ureter. Discussed also given his history of a horseshoe kidney there is a potential I might not be able to advance the scope into the stone if it falls within the renal calyces. He understood all the risk and agreed to proceed Consent for Procedure: I have explained the operation/procedure to the patient, including the risks, benefits, side effects, alternative therapies (including not receiving the proposed treatment or service), the likelihood of the patient achieving his/her goals, and potential recuperation problems for the procedure/sedation/analgesia, as well as any blood products, if indicated. I also explained to the patient the risks, benefits and side effects of the alternatives, as well as the risks related to not receiving the proposed procedure, care, treatment, or services. Past Medical History Past Medical History: Hypertension, Osteoarthritis (OA) Additional Past Medical History / Comment(s): ABDOMINAL PAIN, KIDNEY STONE, History of Any Multi-Drug Resistant Organisms: None Reported Past Surgical History: Hernia Repair Additional Past Surgical History / Comment(s): left little finger surgery, cyst removed from side. , kidney stone removed. Recent stent placement to ureter. Past Anesthesia/Blood Transfusion Reactions: No Reported Reaction Additional Past Anesthesia/Blood Transfusion Reaction / Comment(s): No hx of blood transfusion to date. Smoking Status: Former smoker - Past Family History Mother Family Medical History: No Reported History Brother(s) Family Medical History: Cancer Additional Family Medical History / Comment(s): Unknown type of cancer. Medications and Allergies Home Medications Medication Instructions Recorded Confirmed Type Aspirin EC [Ecotrin Low Dose] 81 mg PO QAM 11/28/21 04/12/24 History amLODIPine [Norvasc] 2.5 mg PO QAM 11/28/21 04/12/24 History lisinopriL [Zestril] 10 mg PO QAM 11/28/21 04/12/24 History Balance And Nature Vitamins 3 tab PO QAM 09/08/23 04/12/24 History amLODIPine [Norvasc] 5 mg PO QAM 09/08/23 04/12/24 History Acetaminophen Tab [Tylenol] 650 mg PO Q6HR PRN tab 03/23/24 04/12/24 Rx Allergies Allergy/AdvReac Type Severity Reaction Status Date / Time No Known Allergies Allergy Verified 04/12/24 11:34 Surgical - Exam - General no distress, no pain - Eyes normal ocular movement, no pale - ENT normal nares, normal mucosa - Respiratory normal expansion, normal respiratory effort - Abdomen Abdomen: soft, non tender, no distended - Psychiatric oriented to time, oriented to person, oriented to place Assessment and Plan Assessment: OR for left-sided ureteroscopy, holmium laser lithotripsy, stone basketing and stent removal
[~2024-04-19 06:53] MED LIST: LIDOCAINE 1% (10MG/ML) FOR IV START INTRADERMA PRN
[2024-04-19] MEDS ORDERED: HYDROmorphone 0.5 MG/0.5 ML SYRINGE IVP PRN (07:00)
[2024-04-19] MEDS: IV FLUID CONTINUATION 1,000 ML IV ONE (07:18)
[2024-04-19] MEDS: LACTATED RINGERS 1,000 ML IV SCH (07:28)
[2024-04-19] MEDS: ONDANSETRON 4 MG/2 ML VIAL IVP ONE (07:30)
--- NOTE | 2024-04-19 07:40 | XR ---
EXAMINATION TYPE: XR KUB DATE OF EXAM: 04/19/2024 7:07 AM COMPARISON: 12/02/2021 CLINICAL INDICATION: Male, 83 years old with history of Ureteral Stone N20.1, TECHNIQUE: XR KUB view(s) obtained. FINDINGS: There is a nonspecific bowel gas pattern. Psoas margins are normal. No organomegaly is present. There is a 0.9 cm calcification over the mid to inferior pole right kidney. Right kidney appears prom inent. There are 1.3 and 1.7 cm calcifications over the right sacral alar. Ureteral stones could BE consider ed. Double pigtail catheter is present in the midline and left hemipelvis IMPRESSION: 1. Large right pelvic inlet calcifications measuring 1.3 and 1.7 cm. 2. 0.9 cm calcification mid right kidney. [facility], , 04/19/2024 7:37 AM
[2024-04-19] MEDS ORDERED: PROPOFOL 10 MG/ML 20 ML VIAL IV ONE (08:50)
[2024-04-19] MEDS ORDERED: MIDAZOLAM 2 MG/2 ML VIAL ONE (08:50)
[2024-04-19] MEDS ORDERED: PHENYLEPHRINE-0.9% NACL SYG 1,000 MCG/10 ML SYRINGE ONE (08:50)
[2024-04-19] MEDS ORDERED: fentaNYL (PF) 50 MCG/ML 2 ML AMP ONE (08:50)
[2024-04-19] MEDS ORDERED: ePHEDrine 50 MG/ML 1 ML VIAL ONE (08:50)
[2024-04-19] MEDS ORDERED: LIDOCAINE 1% INJ 10MG/ML (20 ML MDV) ONE (08:50)
[2024-04-19 10:15] VITALS: TEMP 97.7
--- NOTE | 2024-04-19 10:23 | FL ---
EXAMINATION TYPE: FL guidance operating room DATE OF EXAM: 04/19/2024 FLUOROSCOPY URETERAL STONE CYSTOSCOPY FL TIME [id number] CASTANON 3 images are submitted. [facility], , 04/19/2024 10:21 AM
--- NOTE | 2024-04-19 10:32 | P.OP ---
Date of Procedure: 04/19/24 Preoperative Diagnosis: Left renal stone Postoperative Diagnosis: Same Procedure(s) Performed: Cystoscopy, left ureteroscopy, holmium laser lithotripsy, stone basketing stent exchange Implants: 6 [place] by 24 cm stent left on a string in the left ureter Anesthesia: ALEC Surgeon: Ayush Almeida Estimated Blood Loss (ml): 5 Pathology: other (Left renal stone) Condition: stable Disposition: PACU Indications for Procedure: This is a 83-year-old male with a history of a 9 mm left-sided proximal stone, status post stent insertion for septic stone on March 22. He presents today for definitive stone management. Option of left-sided ureteroscopy with holmium laser was discussed, aware of the risk which includes but not limited to bleeding, infection, injury to the ureter. Discussed also given his history of a horseshoe kidney there is a potential I might not be able to advance the scope into the stone if it falls within the renal calyces. He understood all the risk and agreed to proceed Operative Findings: 3 stones encountered in the left kidney, large stone near the renal pelvis and 2 additional ones in the lower pole of the kidney, of note given the horseshoe appearance of the kidney I was unable to evaluate all the calyces Description of Procedure: Patient brought to the operating room, general anesthesia was induced. She was prepped and draped in sterile fashion placed in a dorsal time position. Cystoscopy with a 21 [place] sheath was inserted per urethra, cystoscopy was performed which showed a moderately trabeculated bladder. The stent was visualized protruding from the left ureteral orifice, of note there was moderate amount of encrustation at the level of the stent. This time the stent was grasped and removed to the meatus. I did attempt to advance a wire through the stent but it was encrusted. This time the stent was removed and the cystoscope was reinserted. Left ureteral orifice was visualized and a sensor wire was advanced under fluoroscopy into the kidney. Next an 1113 [place] access sheath was passed over the wire and into the proximal ureter. 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 At this time the flexible ureteroscope was inserted through the access sheath, the ureter was evaluated and there was no stones at the level of the ureter. This time I advanced the scope into the kidney. At the level of the renal pelvis there was a large stone, and 2 additional stones were seen in the lower pole. Of note on ureteroscopy and this was also confirmed on fluoroscopy the stones were almost at midline and to the right. Using the holmium laser the stone was dusted, any sizable fragments were removed using the stone basket repeat renoscopy showed no sizable fragments or injury to the kidney. Of note given the horseshoe appearance of the kidney I was unable to completely evaluate all the calyces. But on fluoroscopy I did not see any additional radiopaque densities. Pullback ureteroscopy was performed showed no injury to the ureter or any ureteral stones, given the extensive amount of stones that were seen decision was made to exchange the stent. As the ureteroscope was withdrawn a sensor wire was advanced through. Next a ureteral stent was passed over the wire, the proximal curl was visualized on fluoroscopy and the distal curl was visualized using the cystoscope. The stent was left on a string and taped to the patient penis. Patient tolerated procedure was taken to recovery stable
[2024-04-19 10:39] VITALS: RESP 16
[2024-04-19 11:26] VITALS: BP 139/76; PULSE 70
== END 2024-04-19 11:48 | disposition home or self-care (01) ==
LOC: OR 06:53
PROVIDERS: ATTEND Urology
DX: N20.0 Calculus of kidney (principal); N32.89 Other specified disorders of bladder; T83.89XA Other specified complication of genitourinary prosthetic devices, implants and grafts, initial encounter; Q63.1 Lobulated, fused and horseshoe kidney; I10 Essential (primary) hypertension; M19.90 Unspecified osteoarthritis, unspecified site; Z79.82 Long term (current) use of aspirin; Z79.899 Other long term (current) drug therapy; Z87.891 Personal history of nicotine dependence
CPT/HCPCS: 82365; 74018; 52356; J0690; J2405